=== PATIENT | female | born 1940 | race Caucasian/White ===

== ENCOUNTER 2024-12-30 13:50 | Emergency (ER) | payer MEDICARE, OTHER, SELFPAY ==
--- OUTSIDE RECORDS SUMMARY | 2024-12-30 13:52 | XMS_ITS | Clinical Summary ---
Author Organization [facility] Address [address] [place] [address] Care Team Providers Care Tire Mounter Name Role Phone Johanna Velasco MD Primary Care Provider Allergies Active Allergy Reactions Criticality Noted Date Comments Procaine Shortness Of Breath Medications MULTIVITAMIN ORAL once daily 0 A ctive calcium carbonate (CALTRATE) 600 mg calcium (1,500 mg) tablet Take 1 tablet by mouth once daily with a meal. 180 tablet 3 9 Active Cholecalciferol, Vitamin D3, (VITAMIN D-3) 400 unit capsule Take by mouth once daily. 0 9 Active ascorbic acid, vitamin C, (Vitamin C) 1,000 mg tablet Take 1,000 mg by mouth once daily. Active aspirin chewable 81 mg chewable tabletIndications :NSTEMI (non-ST elevated myocardial infarction) (HC),Coronary artery disease, unspecified vessel or lesion type, unspecified whether angina present, unspecified whether [place] or transplanted heart Chew 1 Tablet (81 mg) by mouth once daily with a meal. 0 1 Active nitroglycerin (NITROSTAT) 0.4 mg sublingual tabletIndications :NSTEMI (non-ST elevated myocardial infarction) (HC),Coronary artery disease, unspecified vessel or lesion type, unspecified whether angina present, unspecified whether [place] or transplanted heart Place 1 Tablet (0.4 mg) under the tongue every 5 minutes if needed. 25 Tablet 2 03/12/2021 6:12 PM CDT 1 Active rosuvastatin (CRESTOR) 20 mg tabletIndications :Coronary artery disease, unspecified vessel or lesion type, unspecified whether angina present, unspecified whether [place] or transplanted heart Take 1 Tablet (20 mg) by mouth at bedtime. 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 Chest pain 03/12/2021 Elevated troponin 03/12/2021 NSTEMI (non-ST elevated myocardial infarction) 0 03/12/2021 Osteoporosis 03/17/2013 Hyperlipidemia 03/17/2013 Immunizations Immunization Administration Dates Next Due Td (Age >=7 Years) 03/31/2000 Tdap 08/29/2009 Family History Medical History Relation Name Comments Thyroid Disease Daughter hypothyroidi sm Heart Disease Father [place] age 52, fat al Hyperlipidemia Father Cancer-breast Maternal Aunt 1 Thyroid Disease Maternal Aunt 2 hypothyro idism Diabetes Mother Other Mother mental illness- bipolar/osteoarthritis Thyroid Disease Mother hypothyroidi sm Relation Name Status Comments Daughter Father Maternal Aunt 1 Maternal Aunt 2 Mother Social History Tobacco Use Types Packs/Day Years Used Date Smoking Tobacco: Never Smokeless Tobacco: Never Tobacco Cessation:Counseling Given: Yes Alcohol Use Standard Drinks/Week Comments Yes 0 (1 standard drink = 0.6 oz pur e alcohol) very little PHQ-2 Answer Date Recorded PHQ-2 TOTAL SCORE 0 04/08/2022 Social Connections Answer Date Recorded Frequency of Communication with Friends and Fami ly Not on file 04/21/2023 Financial Resource Strain Answer Date R ecorded Difficulty of Paying Living Expenses 3 04/08/2022 Difficulty of Paying Living Expenses Not on file 04/08/2022 Food Insecurity Answer Date Recorded Worried About Running Out of Food in the Last Ye ar 1 04/08/2022 Transportation Needs Answer Date Record ed Lack of Transportation (Medical) 1 04/08/2022 Housing Stability Answer Date Recorded Unable to Pay for Housing in the Last Year 1 04/08/2022 Comments No Sex and Gender Information Value Date Recorded Sex Assigned at Not on file Legal Sex Female 6:19 AM HEARING THERAPIST Gender Identity Not on file Sexual Orientation Not on file Obstetrics History Para Term AB IAB SAB Ectopic Multiple Livin g Live Births 3 3 Date Outcome GA Total Labor Labor/2nd/3rd Weight Sex Type Anes PTL Kate A1 A5 Name Clin Last Filed Vital Signs Vital Sign Reading Time Taken Comments Blood Pressure 123/70 07/08/2022 9:27 AM HEARING THERAPIST Pulse 68 07/08/2022 9:27 AM HEARING THERAPIST Temperature 36.5 C (97.7 F) 03/21/2021 1:35 PM CDT Respiratory Rate 16 03/13/2021 6:18 AM CDT Oxygen Saturation 98% 07/08/2022 9:27 AM HEARING THERAPIST Inhaled Oxygen Concentration - - Weight 51.7 kg (114 lb) 07/08/2022 9:27 AM HEARING THERAPIST Height 162.6 cm (5' 4) 04/08/2022 9:06 AM CDT Body Mass Index 19.57 04/08/2022 9:06 AM CDT Plan of Treatment Health Maintenance Due Date Last Done Comments Pneumococcal series for age 50+ (1 of 2 - PCV) 01/28/1959 Zoster (shingles) series for age 50+ (1 of 2) 01/28/1990 RSV vaccine for adults or (1 - 1-dose 75+ series) 01/28/2015 Tetanus booster 08/29/2019 08/29/2009, 03/31/2000 BMI (ht and wt on same day) for age 18+ 04/08/2023 04/08/2022, 03/21/2021, 03/03/2019, Additional history exists Depression screening for age 12+ 04/08/2023 04/08/2022, 07/21/2021, 04/01/2021, Additional history exists Medicare Wellness for age 65+ 04/09/2023, 10/16/2016, 03/18/2012, Additional history exists COVID-19 vaccine series ( - season) 2024 Influenza Vaccine (Season Ended) 2025 Tdap Completed 08/29/2009 DEXA/DXA scan for age 65+ Completed 04/21/2012, 03/2010 Procedures Procedure Name Priority Date/Time Associated Diagnosis Comments XR DXA BONE DENSITY 2 SITES AXIAL Routine 04/21/2012 2:39 PM CDT Osteoporosis, unspecified from Last 3 Months or Most Recently Relevant to Health Maintenance Results * XR DEXA BONE DENSITY 2 SITES [63991.1] (04/21/2012 2:39 PM CDT) Anatomical Region Laterality Modality Spine, HIPS, HIPL, HIPR Other Narrative 04/30/2012 1:34 PM CDT Please see scanned document for results of this study. Procedure Note Wendi Hidalgo PA - 04/30/2012 Please see scanned document for results of this study. Johanna Velasco MD DEXA Final R esult from Last 3 Months or Most Recently Relevant to Health Maintenance Insurance MEDICARE PART B HB ONLY MEDICA PRIME SOLUTION HB MEDICARE PART A HB ONLY MEDICA PRIME SOLUTIONS MR PB ONLY Advance Directives * DNR (Latest Code Status on File) Date Activated Date Inactivated Comments 03/12/2021 9:23 AM 03/13/2021 2:05 PM Question Answer Comments Code Status Discussion: Discussed * Full Code Date Activated Date Inactivated Comments 03/12/2021 8:08 AM 03/12/2021 9:23 AM Question Answer Comments Code Status Discussion: Not Discussed Care Teams Tire Mounter Relationship Specialty Start Date End Date Johanna Velasco MD PCP - General 08/30/09
[2024-12-30 14:11] VITALS: BP 186/81; PULSE 64; RESP 18; TEMP 36.4; O2SAT 97; BMI 19.7
--- NOTE | 2024-12-30 14:29 | ED.GENADULT ---
HPI - General Adult General Chief complaint: Dizziness/Vertigo Stated complaint: Vertigo/ Fatigue Time Seen by Provider: 12/30/24 14:07 History of Present Illness HPI narrative: Patient states she has been working hard on her house and yd. She had episode of vertigo yesterday which is completely resolved. She is comes in today as she has been increasingly fatigued. She feels like she sleeping well but just can not get enough rest. She has no dysuria no nausea no vomiting no fevers no chills no chest pain no shortness of breath no palpitations. Again her vertigo has resolved. He has had no recent injuries. Patient otherwise is in her usual state of health and takes no home medications. Related Data Home Medications ?Medication ?Instructions ?Recorded ?Confirmed No Known Home Medications 12/30/24 12/30/24 Allergies Allergy/AdvReac Type Severity Reaction Status Date / Time No Known Drug Allergies Allergy Verified 12/30/24 14:20 Review of Systems Status of ROS: Reports: 10 or more systems reviewed and unremarkable except as noted in History and below Exam Narrative: Exam Narrative: EXAM GENERAL: Patient appears comfortable and well. EYES: No scleral icterus. LYMPH: No supraclavicular or cervical lymphadenopathy. SKIN: Visible skin seen during exam normal or with benign process only. EXT: No dependent lower extremity pedal edema. HEART: Regular rate and rhythm with no murmurs, rubs, or gallops. LUNGS: Clear to auscultation bilaterally with no crackles or wheezes. ABD: Soft, non tender, non distended. PSYCH: Good eye contact, speech is not pressured. Neurologic cranial nerves 2-12 grossly intact no focal defects. Const: Vital Signs, click to edit/add: Vital Signs - 24 hr 12/30/24 14:11 Temperature 97.6 F Pulse Rate [Pulse Oximeter] 64 Respiratory Rate 18 Blood Pressure [Ri ght Upper Arm] 186/81 H Pulse Oximetry 97 Oxygen Delivery Me thod Room Air Course Course ED Course: Patient seen examined. CBC basic metabolic TSH panel UA EKG pending. Vital Signs Vital signs: Initial Vital Signs Temperature 97.6 F 12/30/24 14:11 Temperature Source Temporal Artery Scan 12/30/24 14:11 Pulse Rate 64 12/30/24 14:11 Respiratory Rate 18 12/30/24 14:11 Blood Pressure 186/81 H 12/30/24 14:11 Blood Pressure Mean 116 H 12/30/24 14:11 Blood Pressure Position Sitting 12/30/24 14:11 Pulse Oximetry 97 12/30/24 14:11 Oxygen Delivery Method Room Air 12/30/24 14:11 Vital Signs Temperature 97.6 F 12/30/24 14:11 Pulse Rate 64 12/30/24 14:11 Respiratory Rate 18 12/30/24 14:11 Blood Pressure 186/81 H 12/30/24 14:11 Pulse Oximetry 97 12/30/24 14:11 Oxygen Delivery Method Room Air 12/30/24 14:11 Temperature 97.6 F 12/30/24 14:11 Pulse Rate 64 12/30/24 14:11 Respiratory Rate 18 12/30/24 14:11 Blood Pressure 186/81 H 12/30/24 14:11 Pulse Oximetry 97 12/30/24 14:11 Oxygen Delivery Method Room Air 12/30/24 14:11 Medical Decision Making MDM Narrative Medical decision making narrative: Patient is a 84-year-old woman who lives independently who presents with fatigue. She has normal exam and normal vital signs with the exception of elevated blood pressure. Her CBC electrolytes as well as UA are unremarkable. UA is unremarkable as well. Did do an EKG which showed normal sinus rhythm. Does have some voltage criteria but no signs of congestive heart failure. Her blood pressure is elevated I will recommend follow-up with primary care. I do not believe there is any other significant pathology at work and I did recommend close outpatient follow-up. Lab Data Labs: Lab Results 12/30/24 12/30/24 Range/Units 14:30 14:40 WBC 5.40 (4.50-11.00) K/uL RBC 4.79 (4.00-5.20) m/uL Hgb 13.6 (12.0-16.0) gm/dL Hct 42.7 (33.0-51.0) % MCV 89 (80-100) fL MCH 28 (26-34) pg MCHC 32 (32-36) gm/dL RDW Coeff of Diane 14.0 (11.5-15.5) % Plt Count 244 (140-440) K/uL Neut % (Auto) 51.0 (42.0-72.0) % Lymph % (Auto) 35.7 (20-44) % Moore % (Auto) 10.7 (0.0-11.0) % Eos % (Auto) 1.5 (0.0-7.0) % Baso % (Auto) 0.4 (0.0-3.0) % Neut # (Auto) 2.75 (1.7-7.0) K/uL Lymph # (Auto) 1.93 (0.90-2.90) K/uL Moore # (Auto) 0.60 (0.00-0.90) K/UL Eos # (Auto) 0.08 (0.00-0.50) K/uL Baso # (Auto) 0.02 (0.00-0.30) K/uL Abs Immat Gran (auto) 0.04 (0.00-0.30) K/uL Imm/Tot Granulo (auto) 0.7 % Sodium 139 (135-149) mmol/L Potassium 4.8 (3.6-5.1) mmol/L Chloride 104 (96-114) mmol/L Carbon Dioxide 26 (20-32) mmol/L Anion Gap 9 (7-15) mEq/L BUN 26 (7-30) mg/dL Creatinine 1.2 (0.5-1.5) mg/dL Estimated Creat Clear 28.74 Estimated GFR 45 ml/min Glucose 95 (60-115) mg/dL Calcium 10.1 (8.4-10.6) mg/dL Urine Color Yellow (Yellow) Urine Appearance Clear (Clear) Urine pH 6.0 (5.0-8.5) Ur Specific [place] 1.025 (1.000-1.030) Urine Protein Negative (Negative) Urine Glucose (UA) Negative (Negative) Urine Ketones Negative (Negative) Urine Blood Negative (Negative) Urine Nitrite Negative (Negative) Urine Bilirubin Negative (Negative) Urine Urobilinogen 0.2 (0.2-1.0) Ur Leukocyte Esterase Negative (Negative) Discharge Plan Discharge Clinical Impression: Fatigue Patient Disposition: Home, Self-Care Condition: Stable Instructions: Fatigue (ED) Additional Instructions: Continue current cares Follow-up with your doctor to address elevated blood pressure and current symptoms. Activity Level: No Restrictions Discharge Diet: Regular Prescriptions: No Action No Known Home Medications Follow Up/Referrals: Johanna Velasco MD [Primary Care Provider] - Stand Alone Forms: [employer] Info Instructions
--- OUTSIDE RECORDS SUMMARY | 2024-12-30 14:45 | XMS_ITS | Clinical Summary ---
Author Organization [facility] Address [address] [place] [id number] Care Team Providers Care Nnp Name Role Phone Johanna Velasco MD Primary [...] type, unspecified whether angina present, unspecified whether [place] or transplanted heart Chew 1 Tablet (81 mg) by mouth once daily with a meal. 0 1 Active nitroglycerin (NITROSTAT) 0.4 mg sublingual tabletIndications :NSTEMI (non-ST elevated myocardial infarction) (HC),Coronary artery disease, unspecified vessel or lesion type, unspecified whether angina present, unspecified whether [place] or transplanted heart Place 1 Tablet (0.4 mg) under the tongue every 5 minutes if needed. 25 Tablet 2 03/12/2021 6:12 PM CDT 1 Active rosuvastatin (CRESTOR) 20 mg tabletIndications :Coronary artery disease, unspecified vessel or lesion type, unspecified whether angina present, unspecified whether [place] or transplanted heart Take 1 Tablet (20 [...] Disease Daughter hypothyroidi sm Heart Disease Father [place] age 52, fat al Hyperlipidemia Father Cancer-breast [...] on file Legal Sex Female 6:19 AM MANAGER SITE Gender Identity Not on file Sexual Orientation Not on file Obstetrics History Para Term AB IAB SAB Ectopic Multiple Livin g Live Births 3 3 Date Outcome GA Total Labor Labor/2nd/3rd Weight Sex Type Anes PTL Kate A1 A5 Name Clin Last Filed Vital Signs Vital Sign Reading Time Taken Comments Blood Pressure 123/70 07/08/2022 9:27 AM MANAGER SITE Pulse 68 07/08/2022 9:27 AM MANAGER SITE Temperature 36.5 C (97.7 F) 03/21/2021 1:35 PM CDT Respiratory Rate 16 03/13/2021 6:18 AM CDT Oxygen Saturation 98% 07/08/2022 9:27 AM MANAGER SITE Inhaled Oxygen Concentration - - Weight 51.7 kg (114 lb) 07/08/2022 9:27 AM MANAGER SITE Height 162.6 cm (5' 4) 04/08/2022 9:06 [...] * XR DEXA BONE DENSITY 2 SITES [75916.1] (04/21/2012 2:39 PM CDT) Anatomical Region Laterality [...] Code Status Discussion: Not Discussed Care Teams Nnp Relationship Specialty Start Date End Date Johanna Velasco MD PCP - General 08/30/09
[2024-12-30 14:46] LABS: Basophils Absolute Auto 0.02 K/uL (0.00-0.30); Basophils Percent Auto 0.4 % (0.0-3.0); Eosinophils Absolute Auto 0.08 K/uL (0.00-0.50); Eosinophils Percent Auto 1.5 % (0.0-7.0); Hematocrit 42.7 % (33.0-51.0); Hemoglobin* 13.6 gm/dL (12.0-16.0); Immature Granulocytes Abs Auto 0.04 K/uL (0.00-0.30); Immature Granulocytes Pct Auto 0.7 %; Lymphocytes Absolute Auto 1.93 K/uL (0.90-2.90); Lymphocytes Percent Auto 35.7 % (20-44); Mean Corpuscular HGB Conc 32 gm/dL (32-36); Mean Corpuscular Hemoglobin 28 pg (26-34); Mean Corpuscular Volume 89 fL (80-100); Monocytes Percent Auto 10.7 % (0.0-11.0); Neutrophils Absolute Auto 2.75 K/uL (1.7-7.0); Platelet Count* 244 K/uL (140-440); Red Blood Count 4.79 m/uL (4.00-5.20)
[2024-12-30 14:49] LABS: Appearance Urine Clear (Clear); Bilirubin Urine Negative (Negative); Blood Urine Negative (Negative); Color Urine Yellow (Yellow); Glucose Urine Negative (Negative); Ketones Urine Negative (Negative); Leukocyte Esterase Urine Negative (Negative); Nitrite Urine Negative (Negative); Protein Urine Negative (Negative); Specific Gravity Urine 1.025 (1.000-1.030); Urobilinogen Urine 0.2 (0.2-1.0)
[2024-12-30 14:56] LABS: Slide Review Reflex No
[2024-12-30 15:00] LABS: Chloride* 104 mmol/L (96-114)
[2024-12-30 15:01] LABS: Potassium* 4.8 mmol/L (3.6-5.1); Sodium* 139 mmol/L (135-149)
[2024-12-30 15:04] LABS: Anion Gap 9 mEq/L (7-15); Blood Urea Nitrogen* 26 mg/dL (7-30); Calcium* 10.1 mg/dL (8.4-10.6); Carbon Dioxide* 26 mmol/L (20-32); Creatinine* 1.2 mg/dL (0.5-1.5); Est. Creatinine Clearance* 28.74; Estimated Glomerular Filt Rate 45 ml/min; Glucose* 95 mg/dL (60-115)
== END 2024-12-30 15:27 | disposition home or self-care (01) ==
PROVIDERS: Emergency Provider Internal Medicine; PCP Family Medicine
DX: R42 Dizziness and giddiness (principal); R53.83 Other fatigue
CPT/HCPCS: 36415; 80048; 81003; 84443; 85025; 93005; 99283; 99284

== ENCOUNTER 2025-02-11 20:36 | Emergency (ER) | payer MEDICARE, OTHER, SELFPAY ==
--- OUTSIDE RECORDS SUMMARY | 2025-02-11 20:38 | XMS_ITS | Clinical Summary ---
Author Organization [facility] Address [address] [place] [address] Care Team Providers Care Regional Vice President Surgical Sales Name Role Phone Johanna Velasco MD Primary Care Provider Allergies Active Allergy Reactions Criticality Noted Date Comments Procaine Shortness Of Breath Medications MULTIVITAMIN ORAL once daily 0 A ctive Cholecalciferol, Vitamin D3, (VITAMIN D-3) 400 unit capsule Take by mouth once daily. 0 9 Active ascorbic acid, vitamin C, (Vitamin C) 1,000 mg tablet Take 1,000 mg by mouth once daily. Active aspirin chewable 81 mg chewable tabletIndications :NSTEMI (non-ST elevated myocardial infarction) (HC),Coronary artery disease, unspecified vessel or lesion type, unspecified whether angina present, unspecified whether [place] or transplanted heart Chew 1 Tablet (81 mg) by mouth once daily with a meal. 0 1 Active nitroglycerin 0.4 mg sublingual tabletIndications :NSTEMI (non-ST elevated myocardial infarction) (HC),Coronary artery disease, unspecified vessel or lesion type, unspecified whether angina present, unspecified whether [place] or transplanted heart Place 1 Tablet (0.4 mg) under the tongue every 5 minutes if needed for Chest Pain. 25 Tablet 2 5 Active lisinopriL 10 mg tabletIndications :HTN (hypertension) Take 1 Tablet (10 mg) by mouth once daily. 90 Tablet 3 5 Active calcium carbonate (CALTRATE) 600 mg calcium (1,500 mg) tablet Take 1 tablet by mouth once daily with a meal. 180 tablet 3 9 01/19/20 25 Discontinu ed(*Patien t states no longer taking) nitroglycerin (NITROSTAT) 0.4 mg sublingual tabletIndications :NSTEMI (non-ST elevated myocardial infarction) (HC),Coronary artery disease, unspecified vessel or lesion type, unspecified whether angina present, unspecified whether [place] or transplanted heart Place 1 Tablet (0.4 mg) under the tongue every 5 minutes if needed. 25 Tablet 2 03/12/2021 6:12 PM CDT 1 01/19/20 25 Discontinu ed(Reorder (E-cancel not sent)) rosuvastatin (CRESTOR) 20 mg tabletIndications :Coronary artery disease, unspecified vessel or lesion type, unspecified whether angina present, unspecified whether [place] or transplanted heart Take 1 Tablet (20 mg) by mouth at bedtime. 90 Tablet 3 2 01/19/20 25 Discontinu ed(*Patien t states no longer taking) Active Problems Problem Noted Date Diagnosed Date Subclinical hypothyroidism 04/09/2022 Chest pain 03/12/2021 Elevated troponin 03/12/2021 NSTEMI (non-ST elevated myocardial infarction) 0 03/12/2021 Osteoporosis 03/17/2013 Hyperlipidemia 03/17/2013 Encounters Date Type Department Care Team Description 02/02/2025 1:00 PM CDT Nurse/Clinic Staff Only [facility] [address] [place] [address] Blood Pressure 02/02/2025 Telephone [facility] [address] [place] [address] Johanna Velasco MD High Blood Pressure 02/02/2025 Travel 01/18/2025 10:05 AM CDT Office Visit [facility] [address] [place] [address] Johanna Velasco MD Medicare ANNUAL (subsequent) Visit (84 yr/Wants an A1c, is aware Medicare does not cover) 01/18/2025 Travel 01/03/2025 11:45 AM CDT Office Visit [facility] [address] [place] [address] Johanna Velasco MD ER Follow up ([facility] 12/30/24. Vertigo, after became very fatigued. Will have episodes where her equal liberum is off. Her BP was really elevated and that is not normal for her as her BP generally is on the lower end of normal. Has not been doing what she was told to do after Cardiac rehab and not taking any of her medications) 01/03/2025 Travel 01/02/2025 2:10 PM CDT Nurse/Clinic Staff Only [facility] [address] [place] [address] Blood Pressure 01/02/2025 Travel 01/02/2025 Nurse Triage [facility] [address] [place] [address] Johanna Velasco MD Fatigue from Last 3 Months Immunizations Immunization Administration Dates Next Due Td (Age >=7 Years) 03/31/2000 Tdap 08/29/2009 Family History Medical History Relation Name Comments Thyroid Disease Daughter hypothyroidi sm Heart Disease Father [place] age 52, fat al Hyperlipidemia Father Cancer-breast [...] PHQ-2 Answer Date Recorded PHQ-2 TOTAL SCORE 1 01/18/2025 Social Connections Answer Date Recorded Do you often feel lonely or isolated from those around you? 0 01/03/2025 Financial Resource Strain Answer Date R ecorded Difficulty of Paying Living Expenses 3 01/03/2025 Difficulty of Paying Living Expenses Not on file 01/03/2025 Food Insecurity Answer Date Recorded Do you worry your food will run out before you are able to buy more? 1 01/03/2025 Transportation Needs Answer Date Record ed Does lack of transportation keep you from medica l appointments? 1 01/03/2025 Does lack of transportation keep you from work, meetings or getting things that you need? 1 01/03/2025 Housing Stability Answer Date Recorded What is your housing situation today? 1 01/03/2025 Utilities Answer Date Recorded Do you have trouble paying f or utilities (for example, heat, electricity, water, phone)? 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 Gender Identity Not on file Sexual Orientation Not on file Obstetrics History Para Term AB IAB SAB Ectopic Multiple Livin g Live Births 3 3 Date Outcome GA Total Labor Labor/2nd/3rd Weight Sex Type Anes PTL Kate A1 A5 Name Clin Last Filed Vital Signs Vital Sign Reading Time Taken Comments Blood Pressure 151/69 02/02/2025 1:41 PM CDT BP tower in RN room Pulse 59 02/02/2025 1:41 PM CDT Temperature 36.5 C (97.7 F) 03/21/2021 1:35 PM CDT Respiratory Rate 16 03/13/2021 6:18 AM CDT Oxygen Saturation 99% 02/02/2025 1:4 1 PM CDT Inhaled Oxygen Concentration - - Weight 53.2 kg (117 lb 3.2 oz) 01/18/2025 10:15 AM CDT Height 162.6 cm (5' 4) 01/18/2025 10:1 5 AM CDT Body Mass Index 20.12 01/18/2025 10:15 AM CDT Plan of Treatment Health Maintenance Due Date Last Done Comments Pneumococcal series for age 50+ (1 of 2 - PCV) 01/28/1959 Zoster (shingles) series for age 50+ (1 of 2) 01/28/1990 RSV vaccine for adults or (1 - 1-dose 75+ series) 01/28/2015 Tetanus booster 08/29/2019 08/29/2009, 03/31/2000 COVID-19 vaccine series ( - 2023- season) 2024 Influenza Vaccine (Season Ended) 2025 BMI (ht and wt on same day) for age 18+ 01/18/2026 01/18/2025, 01/03/2025, 04/08/2022, Additional history exists Depression screening for age 12+ 01/18/2026 01/18/2025, 04/08/2022, 07/21/2021, Additional history exists Medicare Wellness for age 65+ 01/19/2026 01/18/2025, 04/08/2022, 10/16/2016, Additional history exists Tdap Completed 08/29/2009 DEXA/DXA scan for age 65+ Completed 04/21/2012, 03/2010 Hepatitis B series for 19+ Aged Out N o longer eligible based on patient's age to complete this topic Procedures Procedure Name Priority Date/Time Associated Diagnosis Comments TSH WITH REFLEX Routine 01/03/2025 12:23 PM CDT Fatigue, unspecified type LIPID PANEL W REFLEX MEASURED LDL Routine 01/03/2025 12:23 PM CDT Hyperlipidemia, unspecified hyperlipidemia type XR DXA BONE DENSITY 2 SITES AXIAL Routine 04/21/2012 2:39 PM CDT Osteoporosis, unspecified from Last 3 Months or Most Recently Relevant to Health Maintenance Results * TSH WITH REFLEX (01/03/2025 12:23 PM CDT) TSH W/REFLEX TO FT4 4.24 0.40 - 4.50 mIU/L [facility] Blood BLOOD SPECIMEN / Unknown 01/03/2025 12:23 PM CDT 01/03/2025 12:25 PM CDT Narrative [facility] - 01/04/2025 7:01 AM CDT FASTING:YES FASTING: YES Johanna Velasco MD CHEMISTRY Final R esult [facility] [address] [place] [address], [facility] [address] [place] [address] * (ABNORMAL) LIPID PANEL W REFLEX MEASURED LDL (01/03/2025 12:23 PM CDT) CHOLESTEROL, TOTAL 256(H) <200 mg/dL [facility] HDL CHOLESTEROL 72 > OR = 50 mg/dL [facility] TRIGLYCERIDES 81 <150 mg/dL [facility] LDL-CHOLESTEROL 166(H) mg/dL (calc) [facility] Comment: Reference range: <100 Desirable range <100 mg/dL for primary prevention; <70 mg/dL for patients with CHD or diabetic patients with > or = 2 CHD risk factors. LDL-C is now calculated using the Mesfin-Panda calculation, which is a validated novel method providing better accuracy than the Friedewald equation in the estimation of LDL-C. Mesfin JAMES et al. OLMAN. 2013;310(19): 6740-8965 (http://education.Waveborn/faq/ZJF307) CHOL/HDLC RATIO 3.6 <5.0 (calc) [facility] NON HDL CHOLESTEROL 184(H) <130 mg/dL (calc) [facility] Comment: For patients with diabetes plus 1 major ASCVD risk factor, treating to a non-HDL-C goal of <100 mg/dL (LDL-C of <70 mg/dL) is considered a therapeutic option. Blood BLOOD SPECIMEN / Unknown 01/03/2025 12:23 PM CDT 01/03/2025 12:25 PM CDT Narrative [facility] - 01/04/2025 5:07 AM CDT FASTING:YES FASTING: YES Johanna Velasco MD CHEMISTRY Final R esult [facility] [address] [place] [address], [facility] [address] [place] [address] * XR DEXA BONE DENSITY 2 SITES [25267.1] (04/21/2012 2:39 PM CDT) Anatomical Region Laterality [...] SOLUTION HB MEDICARE PART A HB ONLY [email or web address] MR PB ONLY Advance Directives * DNR (Latest Code Status on File) Date Activated Date Inactivated Comments 03/12/2021 9:23 AM 03/13/2021 2:05 PM Question Answer Comments Code Status Discussion: Discussed * Full Code Date Activated Date Inactivated Comments 03/12/2021 8:08 AM 03/12/2021 9:23 AM Question Answer Comments Code Status Discussion: Not Discussed Care Teams Regional Vice President Surgical Sales Relationship Specialty Start Date End Date Johanna Velasco MD PCP - General 08/30/09
[2025-02-11 21:00] VITALS: BP 135/70; PULSE 64; RESP 16; TEMP 37.4; O2SAT 97; BMI 20.4
[2025-02-11 21:08] LABS: Appearance Urine Cloudy (Clear); Bilirubin Urine Negative (Negative); Blood Urine 3+ (Negative); Color Urine Yellow (Yellow); Glucose Urine Negative (Negative); Ketones Urine Negative (Negative); Leukocyte Esterase Urine 1+ (Negative); Nitrite Urine Negative (Negative); Protein Urine Trace (Negative); Specific Gravity Urine 1.025 (1.000-1.030); Urobilinogen Urine 0.2 (0.2-1.0); pH Urine 5.5 (5.0-8.5)
[2025-02-11 21:23] LABS: Bacteria Urine Few; RBC Urine 25-50 (0-2); Squamous Epithelial Cell Urine Few (None-Few)
--- NOTE | 2025-02-11 21:43 | ED.FEMALEGU ---
HPI - Female Genitourinary General Date Seen: 02/11/25 Chief complaint: Urogenital Problems, Female Stated complaint: UTI Time Seen by Provider: 02/11/25 21:02 Source: patient Mode of arrival: ambulatory Limitations: no limitations History of Present Illness HPI Narrative: Patient is a 85-year-old female presenting to the emergency department for dysuria, polyuria that started this evening. States she gets a UTI every year to this feels just like her previous UTIs. Unsure what medication she usually gets. She thinks it is a sulfa drug. Denies chest pain, shortness of breath, abdominal pain, nausea, urinary retention, headache, vision changes, lightheadedness, dizziness, weakness, numbness. No other concerns noted at this time. Has not had any fevers or chills Related Data Home Medications ?Medication ?Instructions ?Recorded ?Confirmed lisinopril 10 mg tablet 10 mg PO DAILY 02/11/25 02/11/25 Allergies Allergy/AdvReac Type Severity Reaction Status Date / Time Penicillins AdvReac Verified 02/11/25 21:02 Review of Systems Status of ROS: Reports: 10 or more systems reviewed and unremarkable except as noted in History and [facility] Smoking Status: Never smoker How often do you have a drink containing alcohol: never AUDIT-C Alcohol total score: 0 Non-prescribed substance use: denies use Exam Narrative: Exam Narrative: Const: Well-nourished, Well-developed, in no distress Eyes: PERRL, no conjunctival injection, and symmetrical lids HENT: Atraumatic external nose and ears. Moist mucous membranes. Neck: Symmetric, trachea midline, No thyromegaly. CVS: RRR, No murmurs or gallops. Peripheral pulses 2+ and equal in all extremities RESP: Unlabored respiratory effort. Clear to auscultation bilaterally. GI: Nontender/Nondistended, No rebound or guarding. MSK:Extremities w/o deformity, Normal Active ROM Skin: Warm, Dry. No rashes or lesions. Neuro: Normal Muscle tone, No focal neurological deficits. Psych: Awake, Alert, & Oriented x3. Appropriate mood and affect. Const: Vital Signs, click to edit/add: Vital Signs - 24 hr 02/11/25 21:00 Temperature 99.4 F Pulse Rate [Pulse Oximeter] 64 Respiratory Rate 16 Blood Pressure [Ri ght Upper Arm] 135/70 Pulse Oximetry 97 Oxygen Delivery Me thod Room Air Course Vital Signs Vital signs: Initial Vital Signs Temperature 99.4 F 02/11/25 21:00 Temperature Source Temporal Artery Scan 02/11/25 21:00 Pulse Rate 64 02/11/25 21:00 Respiratory Rate 16 02/11/25 21:00 Blood Pressure 135/70 02/11/25 21:00 Blood Pressure Mean 91 02/11/25 21:00 Blood Pressure Position Sitting 02/11/25 21:00 Pulse Oximetry 97 02/11/25 21:00 Oxygen Delivery Method Room Air 02/11/25 21:00 Vital Signs Temperature 99.4 F 02/11/25 21:00 Pulse Rate 64 02/11/25 21:00 Respiratory Rate 16 02/11/25 21:00 Blood Pressure 135/70 02/11/25 21:00 Pulse Oximetry 97 02/11/25 21:00 Oxygen Delivery Method Room Air 02/11/25 21:00 Temperature 99.4 F 02/11/25 21:00 Pulse Rate 64 02/11/25 21:00 Respiratory Rate 16 02/11/25 21:00 Blood Pressure 135/70 02/11/25 21:00 Pulse Oximetry 97 02/11/25 21:00 Oxygen Delivery Method Room Air 02/11/25 21:00 MDM - Female Genitourinary MDM Narrative Medical decision making narrative: Patient is an 85-year-old female presenting to the emergency department for a UTI. Urinalysis returned showing signs of a UTI. I will start her on antibiotics. I do not believe further workup is necessary as she is not having any symptoms and states this is just like her previous episodes. Also unable to find out what previous antibiotic she is you is. I did consider take Keflex but she has previously had allergy to penicillins like cause her severe respiratory distress when she was in her 20s. Due to that I will try Macrobid instead. Prescribed via [facility]. Lab Data Labs: Lab Results 02/11/25 Range/Units 20:50 Urine Color Yellow (Yellow) Urine Appearance Cloudy A (Clear) Urine pH 5.5 (5.0-8.5) Ur Specific [place] 1.025 (1.000-1.030) Urine Protein Trace A (Negative) Urine Glucose (UA) Negative (Negative) Urine Ketones Negative (Negative) Urine Blood 3+ A (Negative) Urine Nitrite Negative (Negative) Urine Bilirubin Negative (Negative) Urine Urobilinogen 0.2 (0.2-1.0) Ur Leukocyte Esterase 1+ A (Negative) Urine RBC 25-50 A (0-2) Urine WBC 10-25 A (0-5) Ur Squamous Epith Cells Few (None-Few) Urine Bacteria Few A (None) Discharge Plan Discharge Clinical Impression: Urinary tract infection Qualifiers: Urinary tract infection type: site unspecified Hematuria presence: without hematuria Qualified Code(s): N39.0 - Urinary tract infection, site not specified Patient Disposition: Home, Self-Care Condition: Stable Instructions: Urinary Tract Infection in Older Adults (ED) Additional Instructions: Take the antibiotics as prescribed. You can pick it up at [facility]. If you starts developing any shortness of breath but taking this medication stop it immediately and return for re-evaluation. Prescriptions: No Action lisinopril 10 mg tablet 10 mg PO DAILY Follow Up/Referrals: Johanna Velasco MD [Primary Care Provider, Family Practice] Stand Alone Forms: [employer] Info Instructions
== END 2025-02-11 22:00 | disposition home or self-care (01) ==
PROVIDERS: Emergency Medicine; Emergency Provider Student in an Organized Health Care Education/Training Program; PCP Family Medicine
DX: N39.0 Urinary tract infection, site not specified (principal)
CPT/HCPCS: 81001; 87086; 99283

== ENCOUNTER 2025-04-26 10:40 | Inpatient (IN) | payer MEDICARE, OTHER, SELFPAY ==
[2025-04-26] VITALS (8 sets, daily range): BP systolic 132–216; BP diastolic 75–108; PULSE 69–86; RESP 16–20; TEMP 36.4–37.1; O2SAT 99–100; BMI 17.4; BMI 17.6; BMI 17.7
--- OUTSIDE RECORDS SUMMARY | 2025-04-26 10:44 | XMS_ITS | Clinical Summary ---
Author Organization [email or web address] [facility] Address [address] [place] [id number] Care Team Providers Care Java Flex Developer Name Role Phone Johanna Velasco MD Primary [...] type, unspecified whether angina present, unspecified whether modoc or transplanted heart Chew 1 Tablet (81 mg) by mouth once daily with a meal. 0 1 Active nitroglycerin 0.4 mg sublingual tabletIndications :NSTEMI (non-ST elevated myocardial infarction) (HC),Coronary artery disease, unspecified vessel or lesion type, unspecified whether angina present, unspecified whether modoc or transplanted heart Place 1 Tablet (0.4 mg) under the tongue every 5 minutes if needed for Chest Pain. 25 Tablet 2 5 Active lisinopriL 10 mg tabletIndications :HTN (hypertension) Take 1 Tablet (10 mg) by mouth once daily. 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 Not answering her phone. Brother in [facility]) 04/25/2025 10:55 AM CDT Office Visit [facility] [address] [place] [address] Johanna Velasco MD Weight (Has lost a lot of weight, stomach pain and loss of appetite ); Fatigue; Extremity Weakness (Cn't walk, feels very unstable and weak. Has fallen a few time. Legs hurt); Derm Problem; Confusion (Can't remember very well, loss of words) 04/25/2025 Travel 02/02/2025 1:00 PM CDT Nurse/Clinic Staff Only [facility] [address] [facility] [place] [address] Blood Pressure 02/02/2025 Telephone [facility] [address] [place] [address] Johanna Velasco MD High Blood Pressure 02/02/2025 Travel from Last 3 Months Immunizations Immunization Administration Dates Next Due Td (Age >=7 Years) 03/31/2000 Tdap 08/29/2009 Family History Medical History Relation Name Comments Thyroid Disease Daughter hypothyroidi sm Heart Disease Father [place] age 52, fat al Hyperlipidemia Father Cancer-breast [...] on file Legal 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 Gender Identity Not on file Sexual Orientation Not on file Obstetrics History Para Term AB IAB SAB Ectopic Multiple Livin g Live Births 3 3 Date Outcome GA Total Labor Labor/2nd/3rd Weight Sex Type Anes PTL Kate A1 A5 Name Clin Last Filed Vital Signs Vital Sign Reading Time Taken Comments Blood Pressure 199/95 04/25/2025 11:11 AM CDT Pulse 83 04/25/2025 11:11 AM CDT Temperature 36.5 C (97.7 F) 03/21/2021 1:35 PM CDT Respiratory Rate 16 03/13/2021 6:18 AM CDT Oxygen Saturation 98% 04/25/2025 11:11 AM CDT Inhaled Oxygen Concentration - - Weight 44.5 kg (98 lb) 04/25/2025 11:11 AM CDT Height 162.6 cm (5' 4) 01/18/2025 10:15 AM CDT Body Mass Index 16.82 01/18/2025 10:15 AM CDT Plan of Treatment Upcoming Encounters Date Type Department Care Team (Late st Contact Info) Description 04/30/2025 2:15 PM CDT Office Visit [facility] [address] [place] [address] Johanna Velasco MD [address] [place] [address] Health Maintenance Due Date Last Done Comments Pneumococcal series for age 50+ (1 of 2 - PCV) 01/28/1959 Zoster (shingles) series for age 50+ (1 of 2) 01/28/1990 RSV vaccine for adults or (1 - 1-dose 75+ series) 01/28/2015 Tetanus booster 08/29/2019 08/29/2009, 03/31/2000 COVID-19 vaccine series (1 - season) 2025 Influenza Vaccine (#1) 2025 BMI (ht and wt on same day) for age 18+ 01/18/2026 01/18/2025, 01/03/2025, 04/08/2022, Additional history exists Depression screening for age 12+ 01/18/2026 01/18/2025, 04/08/2022, 07/21/2021, Additional history exists Medicare Wellness for age 65+ 01/19/2026 01/18/2025, 04/08/2022, 10/16/2016, Additional history exists DEXA/DXA scan for age 65+ Completed 04/21/2012, 03/2010 Hepatitis B series for 19+ Aged Out N o longer eligible based on patient's age to complete this topic Procedures Procedure Name Priority Date/Time Associated Diagnosis Comments CBC WITH AUTO DIFFERENTIAL Routine 04/25/2025 12:12 PM CDT Weakness Unintentional weight loss Lower abdominal pain COMP METABOLIC PANEL Routine 04/25/2025 12:12 PM CDT Weakness Unintentional weight loss Lower abdominal pain TSH WITH REFLEX Routine 04/25/2025 12:12 PM CDT Weakness Unintentional weight loss Lower abdominal pain Subclinical hypothyroidism CBC WITH AUTO DIFFERENTIAL Routine 04/25/2025 12:12 PM CDT Weakness Unintentional weight loss Lower abdominal pain XR DXA BONE DENSITY 2 SITES AXIAL Routine 04/21/2012 2:39 PM CDT Osteoporosis, unspecified from Last 3 Months or Most Recently Relevant to Health Maintenance Results * (ABNORMAL) CBC WITH AUTO DIFFERENTIAL (04/25/2025 12:12 PM CDT) Pathologist [facility] WHITE BLOOD CELL COUNT 7.5 3.8 - 10.8 Thousand/ uL 04/26/2025 3:17 AM CDT [facility] RED BLOOD CELL COUNT 5.17(H) 3.80 - 5.10 Million/u L 04/26/2025 3:17 AM CDT [facility] HEMOGLOBIN 14.5 11.7 - 15.5 g/dL 04/26/2025 3:17 AM CDT [facility] HEMATOCRIT 44.7 35.0 - 45.0 % 04/26/2025 3:17 AM CDT [facility] MCV 86.5 80.0 - 100.0 fL 04/26/2025 3:17 AM CDT [facility] MCH 28.0 27.0 - 33.0 pg 04/26/2025 3:17 AM CDT [facility] MCHC 32.4 32.0 - 36.0 g/dL 04/26/2025 3:17 AM CDT [facility] Comment: For adults, a slight decrease in the calculated MCHC value (in the range of 30 to 32 g/dL) is most likely not clinically significant; however, it should be interpreted with caution in correlation with other red cell parameters and the patient's clinical condition. RDW 13.4 11.0 - 15.0 % 04/26/2025 3:17 AM CDT [facility] PLATELET COUNT 280 140 - 400 Thousand/ uL 04/26/2025 3:17 AM CDT [facility] MPV 11.9 7.5 - 12.5 fL 04/26/2025 3:17 AM CDT [facility] NEUTROPHILS 74 % 04/26/2025 3:17 AM CDT [facility] LYMPHOCYTES 14.7 % 04/26/2025 3:17 AM CDT [facility] MONOCYTES 10.9 % 04/26/2025 3:17 AM CDT [facility] EOSINOPHILS 0.1 % 04/26/2025 3:17 AM CDT [facility] BASOPHILS 0.3 % 04/26/2025 3:17 AM CDT [facility] ABSOLUTE NEUTROPHILS 5550 1500 - 7800 cells/uL 04/26/2025 3:17 AM CDT [facility] ABSOLUTE LYMPHOCYTES 1103 850 - 3900 cells/uL 04/26/2025 3:17 AM CDT [facility] ABSOLUTE MONOCYTES 818 200 - 950 cells/uL 04/26/2025 3:17 AM CDT [facility] ABSOLUTE EOSINOPHILS 8(L) 15 - 500 cells/uL 04/26/2025 3:17 AM CDT [facility] ABSOLUTE BASOPHILS 23 0 - 200 cells/uL 04/26/2025 3:17 AM CDT [facility] Blood BLOOD SPECIMEN / Unknown [facility] / Unknown 04/25/2025 12:12 PM CDT 04/25/2025 12:13 PM CDT us Johanna Velasco MD HEMATOLOGY Final R esult Performing Organization Address City/[facility]/ZIP Co de Phone Number [facility] [address] [address], [place] [phone] * TSH WITH REFLEX (04/25/2025 12:12 PM CDT) TSH W/REFLEX TO FT4 3.37 0.40 - 4.50 mIU/L 04/26/2025 6:01 AM CDT [facility] Blood BLOOD SPECIMEN / Unknown [facility] / Unknown 04/25/2025 12:12 PM CDT 04/25/2025 12:13 PM CDT us Johanna Velasco MD CHEMISTRY Final R esult Performing Organization Address [facility]/ZIP Co de Phone Number [facility] [address] [address], [place] [phone] * (ABNORMAL) COMP METABOLIC PANEL (04/25/2025 12:12 PM CDT) SODIUM 139 135 - 146 mmol/L 04/26/2025 9:49 AM CDT [facility] POTASSIUM 3.7 3.5 - 5.3 mmol/L 04/26/2025 9:49 AM CDT [facility] CHLORIDE 97(L) 98 - 110 mmol/L 04/26/2025 9:49 AM CDT [facility] CARBON DIOXIDE 32 20 - 32 mmol/L 04/26/2025 9:49 AM CDT [facility] GLUCOSE 122(H) 65 - 99 mg/dL 04/26/2025 9:49 AM CDT [facility] Comment: Fasting reference interval For someone without known diabetes, a glucose value between 100 and 125 mg/dL is consistent with prediabetes and should be confirmed with a follow-up test. CALCIUM >15.0(HH) 8.6 - 10.4 mg/dL 04/26/2025 9:49 AM CDT [facility] Comment:Verified by repeat a nalysis. CREATININE 1.81(H) 0.60 - 0.95 mg/dL 04/26/2025 9:49 AM CDT [facility] BUN/CREATININE RATIO 18 6 - 22 (calc) 04/26/2025 9:49 AM CDT [facility] EGFR 27(L) > OR = 60 mL/min/1. 73m2 04/26/2025 9:49 AM CDT [facility] ALBUMIN 4.6 3.6 - 5.1 g/dL 04/26/2025 9:49 AM CDT [facility] PROTEIN, TOTAL 7.6 6.1 - 8.1 g/dL 04/26/2025 9:49 AM CDT [facility] BILIRUBIN, TOTAL 0.6 0.2 - 1.2 mg/dL 04/26/2025 9:49 AM CDT [facility] ALKALINE PHOSPHATASE 55 37 - 153 U/L 04/26/2025 9:49 AM CDT [facility] ALT 9 6 - 29 U/L 04/26/2025 9:49 AM CDT [facility] AST 24 10 - 35 U/L 04/26/2025 9:49 AM CDT [facility] UREA NITROGEN (BUN) 32(H) 7 - 25 mg/dL 04/26/2025 9:49 AM CDT [facility] GLOBULIN 3.0 1.9 - 3.7 g/dL (calc) 04/26/2025 9:49 AM CDT [facility] ALBUMIN/GLOBULI N RATIO 1.5 1.0 - 2.5 (calc) 04/26/2025 9:49 AM CDT [facility] Blood BLOOD SPECIMEN / Unknown [facility] / Unknown 04/25/2025 12:12 PM CDT 04/25/2025 12:13 PM CDT Johanna Velasco MD CHEMISTRY Final R esult [facility] [address] [place] [address], [place] [phone] * XR DEXA BONE DENSITY 2 SITES [48804.1] (04/21/2012 2:39 PM CDT) Anatomical Region Laterality [...] Code Status Discussion: Not Discussed Care Teams Java Flex Developer Relationship Specialty Start Date End Date Johanna Velasco MD PCP - General 08/30/09
--- NOTE | 2025-04-26 11:15 | ED.GENADULT ---
HPI - General Adult General Time Seen by Provider: 11:15 Date Seen: 04/26/25 Chief complaint: Weakness Stated complaint: Abnormal labs Time Seen by Provider: 04/26/25 11:15 Source: patient and RN notes reviewed Mode of arrival: ambulatory Limitations: no limitations History of Present Illness HPI narrative: And is a very pleasant 85-year-old female with history of constipation confusion and intermittent vertigo with difficulty walking starting approximately 2 months ago with increasing symptoms. She went to her primary physician at [facility] Dr. Velasco and labs were ordered. An was contacted today and to come to the emergency room immediately for an abnormal blood level. We do find out that is elevated calcium that measured greater than 15. Upon further discussion patient notes that she has been having a hard time walking and occasionally talking for at least 2 months. She states she will try to walk and then will fall over. She notes long-time history of constipation even with the use of Metamucil. States that she really has not been eating because she gets a pain in her stomach after eating. This has been going on for approximately a month. She notes a 40 lb weight loss in the past 4 months although her primary documents a 19 lb weight loss in the past few months. Patient herself states that she occasionally has challenges finding words even though she knows what she wants to say P she denies any vomiting fever chills dysuria or hematuria. She denies any belly pain or vertigo today. She states that she has had thyroid problems in the past but is unable to give me any details. She notes history of is MRI with 2 stent placements 4 years ago. Patient denies visual changes. Able to obtain records from [facility]. Note from yesterday April 25 notes patient has concern including weight loss fatigue weakness and confusion. She has also been dealing with nausea after her much meals and her appetite has decreased significantly. Note details challenges with primary care provider and brother. Primary care provider Dr. Velasco called me today and noted that he seemed to be rather argumentative. Primary care has concerns about patient being vulnerable in his care. Related Data Home Medications ?Medication ?Instructions ?Recorded ?Confirmed lisinopril 10 mg tablet 10 mg PO DAILY 02/11/25 02/11/25 Allergies Allergy/AdvReac Type Severity Reaction Status Date / Time procaine (From Novocain) Allergy Severe Verified 04/26/25 11:11 Penicillins AdvReac Verified 02/11/25 21:02 Review of Systems Status of ROS: Reports: 10 or more systems reviewed and unremarkable except as noted in History and below Const: Reports: fatigue; Denies: fever or chills Eyes: Denies: change in vision ENMT: Reports: vertigo; Denies: throat pain, neck pain or nasal congestion Cardio: Denies: chest pain, palpitations, swelling of feet/ankles, lightheadedness or shortness of breath with exertion Resp: Denies: shortness of breath or cough GI: Reports: abdominal pain, nausea and constipation; Denies: vomiting or blood in stool : Denies: painful urination or urinary frequency Musculo: Denies: back pain, neck pain or extremity pain Neuro: Reports: weakness in extremities, lack of coordination, vertigo and confusion; Denies: headache Endo: Reports: fatigue PFSH PFSH Social History What is your current living situation?: I presently have a place to live Problems where you live: no known problems Problems where you live details: n/a In the past 12 months, utilities in danger of being shut off: no In past 12 months, lack of transportation kept you from medical appts, meetings, work, or getting things needed for daily living: no In the past 12 mos, have been you worried that your food would run out before you had money to buy more?: never true In the past 12 mos, the food you bought just didn't last and you didn't have money to buy more?: never true Smoking Status: Never smoker Second hand tobacco smoke exposure: No How often do you have a drink containing alcohol: never How often do you have six or more drinks on one occasion: Never AUDIT-C Alcohol total score: 0 Non-prescribed substance use: denies use Caffeine: No How often does anyone, including family, friends and others, physically hurt you: never How often does anyone, including family, friends and others, insult or talk down to you: never How often does anyone, including family, friends and others, threaten you with harm: never How often does anyone, including family, friends and others, scream or curse at you: never Exam Narrative: Exam Narrative: Alert and oriented. Does have moments where she has problems finding words but appears to know exactly what she wants to say. GCS 15. Head is atraumatic. Normocephalic. EOM is full and pupils equal round reactive. Face symmetrical. Eyebrow raise smile symmetrical tongue is midline. Neck is supple without lymphadenopathy. Heart with regular rate and rhythm. Lungs are clear bilaterally. Abdomen is soft nontender. Pelvis stable. Lower extremities without swelling. Able to lift both legs independently off the bed. Romberg is positive in that both arms cross over the midline. There is no drift laterally. Finger to nose is intact. Const: Vital Signs, click to edit/add: Vital Signs - 24 hr 04/26/25 11:01 04/26/25 13:55 Temperature 98 F Pulse Rate [Pulse Oximeter] 86 69 Respiratory Rate 18 Blood Pressure [Ri ght Upper Arm] 216/108 H 182/85 H Pulse Oximetry 99 100 Oxygen Delivery Me thod Room Air Room Air Documenting provider has reviewed patient's vital signs: yes Course Course ED Course: Differential diagnosis includes but is not limited to parathyroid elevation, underlying malignancy, vitamin-D toxicity. This time will recheck calcium, order IN eyes calcium, EKG, PTH, urinalysis and vitamin-D. Patient's brother arrives. I do explain to him likely need for hospitalization although CT of the abdomen is currently pending. He appears to understand that and has been cooperative. Vital Signs Vital signs: Initial Vital Signs Temperature 98 F 04/26/25 11:01 Temperature Source Temporal Artery Scan 04/26/25 11:01 Pulse Rate 86 04/26/25 11:01 Respiratory Rate 18 04/26/25 11:01 Blood Pressure 216/108 H 04/26/25 11:01 Blood Pressure Mean 144 H 04/26/25 11:01 Blood Pressure Position Sitting 04/26/25 11:01 Pulse Oximetry 99 04/26/25 11:01 Oxygen Delivery Method Room Air 04/26/25 11:01 Vital Signs Temperature 98 F 04/26/25 11:01 Pulse Rate 86 04/26/25 11:01 Respiratory Rate 18 04/26/25 11:01 Blood Pressure 216/108 H 04/26/25 11:01 Pulse Oximetry 99 04/26/25 11:01 Oxygen Delivery Method Room Air 04/26/25 11:01 Temperature 97.6 F 04/26/25 16:14 Pulse Rate 73 04/26/25 16:14 Respiratory Rate 18 04/26/25 16:14 Blood Pressure 151/100 H 04/26/25 16:14 Pulse Oximetry 99 04/26/25 16:14 Oxygen Delivery Method Room Air 04/26/25 16:17 Medications Administered Medications: Generic Name Dose Route Start Last Admin Trade Name Freq PRN Reason Stop Dose Admin Calcitonin Butler 180 unit 04/26/25 15:00 04/26/25 15:18 Calcitonin,Butler,Synthetic 200 Unit/Ml Inj SUBCUT 180 unit Q12H JUDY Administration Discontinued Medications Generic Name Dose Route Start Last Admin Trade Name Freq PRN Reason Stop Dose Admin Sodium Chloride 1,000 mls @ 1,000 mls/hr 04/26/25 11:51 04/26/25 13:04 0.9 % Sodium Chloride 1000 Ml IV 04/26/25 12:50 1,000 mls/hr .Q1H JUDY Administration Sodium Chloride 1,000 mls @ 1,000 mls/hr 04/26/25 14:46 04/26/25 14:52 0.9 % Sodium Chloride 1000 Ml IV 04/26/25 15:45 1,000 mls/hr .Q1H JUDY Administration Medical Decision Making MDM Narrative Medical decision making narrative: 1. Hypercalcemia-ionized calcium elevated 1.8 and calcium elevated at 15.1. Human is normal. PTH is normal as was vitamin-D. This most likely represents sequela of a malignancy. CT unfortunately shows retroperitoneal lymphadenopathy. In the main body of the CT report there is a questionable upper abdominal mass. Unfortunately CT was done without the contrast given elevated creatinine. Likely will need to repeat this tomorrow with contrast. IV fluids started in the emergency room. No further medications given at this time. EKG reassuring with no significant arrhythmia. 2. Uncertain social situation-primary m.d. notes some challenges with patient's brother as he has been helping her with cares. Notes that there have been some home arguments regarding an appointment for today and cancelling of her appointment at the clinic. His behavior here in the emergency room has been appropriate today 3. Weakness-most likely secondary to 1. TSH normal as is white count and hemoglobin EKG without acute ST or T-wave changes. 4. Constipation-likely secondary to 1. 5. Confusion-most likely to 1. Patient also experience fall a few weeks ago and fortunately no evidence of sub dural hematoma skull fracture or cervical spine injury. 6. Disposition-inpatient admission under the care of the hospitalist . Medical Records Medical records reviewed: Yes I reviewed the patient's medical records Lab Data Lab results reviewed: Yes I reviewed the patient's lab results Labs: Lab Results 04/26/25 04/26/25 Range/Units 12:15 14:00 Sodium 133 L (135-149) mmol/L Potassium 3.6 (3.6-5.1) mmol/L Chloride 98 (96-114) mmol/L Carbon Dioxide 29 (20-32) mmol/L Anion Gap 6 L (7-15) mEq/L BUN 30 (7-30) mg/dL Creatinine 1.7 H (0.5-1.5) mg/dL Estimated Creat Clear 16.98 Estimated GFR 29 ml/min Glucose 111 (60-115) mg/dL Calcium 15.1 H* (8.4-10.6) mg/dL Ionized Calcium Cindy 1.84 H (1.11-1.30) mmol/L Total Bilirubin 0.6 (0.1-1.5) mg/dL AST 46 H (12-35) U/L ALT 15 (4-35) U/L Alkaline Phosphatase 51 (40-150) U/L Total Protein 7.4 (6.0-8.3) g/dL Albumin 4.2 (3.3-5.0) g/dL 25-OH Vitamin D Total 71 (30-80) ng/mL PTH Intact 24.3 (14.2-75.2) pg/mL Urine Color Yellow (Yellow) Urine Appearance Clear (Clear) Urine pH 6.5 (5.0-8.5) Ur Specific [place] 1.015 (1.000-1.030) Urine Protein Trace A (Negative) Urine Glucose (UA) Negative (Negative) Urine Ketones Negative (Negative) Urine Blood Negative (Negative) Urine Nitrite Negative (Negative) Urine Bilirubin Negative (Negative) Urine Urobilinogen 0.2 (0.2-1.0) Ur Leukocyte Esterase Trace A (Negative) Urine RBC 0-2 (0-2) Urine WBC 5-10 A (0-5) Ur Squamous Epith Cells Few (None-Few) Calcium Oxalate Crystal Few A (None) Amorphous Sediment Few A (None) Urine Bacteria Few A (None) Imaging Data CT scan - head: Attestation: I have reviewed the pertinent imaging results. Cervical spine CT: Attestation: I have reviewed the pertinent imaging results. ECG Data Attestation: I personally reviewed and interpreted this ECG as follows: Interpretation: Sinus rhythm at a rate of 68. I do not note any acute ST or T-wave injuries. QT and KS intervals within normal limits. Discharge Plan Discharge Clinical Impression: Hypercalcemia, Lymphadenopathy, retroperitoneal, Confusion, Constipation, Vertigo Patient Disposition: Admitted As Inpatient Condition: Improved
--- NOTE | 2025-04-26 11:50 | CRLHL7_ITS ---
For Patients: As a result of the 21st Century Cures Act, medical imaging exams and procedure reports are released immediately into your electronic medical record. You may view this report before your referring provider. If you have questions, please contact your health care provider. Indication: FALL 04/23/25, HYPERCALCEMIA WITH SIGNIFICANT WT LOSS Technique: CT of the chest, abdomen, and pelvis was obtained without intravenous contrast. Please note that all CT scans at this facility use dose modulation, iterative reconstruction, and/or weight-based dosing when appropriate to reduce radiation dose to as low as reasonably achievable. Comparison: None. Findings: CHEST: Medical devices: None. Thyroid: Normal. Lymph nodes: Limited evaluation without IV contrast. No supraclavicular, axillary, mediastinal, or hilar lymphadenopathy. Vasculature: Limited evaluation without IV contrast. Aorta and main pulmonary artery diameters are within normal range. Mild aortic calcification. Heart: Moderate coronary artery calcification. Trace pericardial effusion. Other mediastinal structures: Normal noncontrast appearance. Lung parenchyma and pleura: Moderate biapical pleural-parenchymal scarring. Airways: No significant abnormality. Chest wall: No significant abnormality. ABDOMEN/PELVIS: Liver and biliary tree: Subcentimeter hypoattenuating lesions are too small to characterize and favored to represent cysts. Calcified granuloma. Gallbladder: Normal Spleen: Normal noncontrast appearance. Pancreas: Mild fatty atrophy. Adrenal glands: Normal noncontrast appearance. Kidneys and ureters: Atrophic right kidney. 4.9 centimeter right renal cyst (4/121). No hydronephrosis or obstructing renal calculi. Gastrointestinal tract: Mild sigmoid diverticulosis without CT evidence of acute diverticulitis. Moderate stool burden is seen throughout the colon. No evidence of acute appendicitis. No evidence of bowel obstruction. Peritoneal cavity: Normal Bladder: Normal Pelvic organs: Status post hysterectomy. Vasculature: Moderate calcification. Lymph nodes: Suboptimally evaluated in the absence of intravenous contrast. Retroperitoneal lymphadenopathy measuring up to 3.3 x 2.5 centimeter in the left iliac region (4/149). Ill-defined mass in the upper retroperitoneum measuring roughly 5.1 x 4.1 centimeter (4/100). Abdominal wall: Normal Musculoskeletal: Moderate degenerative changes of the visualized spine and bilateral hips. Impression: 1. Retroperitoneal lymphadenopathy, which is suboptimally evaluated in the absence of intravenous contrast. Findings are concerning for malignancy. Consider contrast-enhanced examination for further evaluation. 2. Trace pericardial effusion. 3. No acute intrathoracic or intra-abdominal injury is seen. Please note that all CT scans at this facility use dose modulation, iterative reconstruction, and/or weight-based dosing when appropriate to reduce radiation dose to as low as reasonably achievable. Dictated by Praneeth Saxena MD @ 04/26/2025 1:22:30 PM (Electronically Signed)
--- NOTE | 2025-04-26 11:50 | CT_ITS ---
Patient: LIZZETH AKERS Facility:?[facility] Patient ID:?[id number] Site Patient ID:?[id number]. Site :?[id number] Study:?CT-Head WITHOUT-04/26/2025 12:57:41 PM Ordering Physician:Mathew Mullins Final Report: INDICATION: Fall on 04/23/2025, vertigo TECHNIQUE: Head CT without contrast. COMPARISON: None. FINDINGS: CSF spaces: Within normal limits for age. Brain parenchyma and extra-axial spaces: There are nonspecific low attenuation white matter changes consistent with chronic microvascular disease. No sign of mass, hemorrhage, or midline shift. Generalized volume loss. Scattered atherosclerotic calcifications. Skull base and calvarium: The visualized paranasal sinuses and mastoid air cells demonstrate no acute or significant findings. The visualized orbits are grossly unremarkable. No skull fractures. IMPRESSION: No acute intracranial abnormality. Please note that all CT scans at this facility use dose modulation, iterative reconstruction, and/or weight-based dosing when appropriate to reduce radiation dose to as low as reasonably achievable. Dictated by Mary Patterson MD @ 04/26/2025 1:04:31 PM Signed by:?Mary Patterson MD @04/26/2025 1:04:31 PM (Electronic Signature)
--- NOTE | 2025-04-26 11:50 | CT_ITS ---
Patient: LIZZETH AKERS Facility:?[facility] Patient ID:?[id number] Site Patient ID:?[id number]. Site :?[id number] Study:?CT-Spine Cervical -04/26/2025 12:57:54 PM Ordering Physician:Mathew Mullins Final Report: INDICATION: Fall on 04/23/2025 TECHNIQUE: CT cervical spine without contrast. COMPARISON: None. FINDINGS: Vertebrae: Trace anterolisthesis of C7 on T1. There are no fractures or suspicious bony lesions. The bones appear demineralized. Discs and facet joints: There is mild multilevel degenerative disc disease most severe at C5-6 and C6-7. There are multilevel degenerative changes in the facets. Extraspinal findings: Carotid and vertebral artery calcifications are present. IMPRESSION: No acute abnormality of the cervical spine. Please note that all CT scans at this facility use dose modulation, iterative reconstruction, and/or weight-based dosing when appropriate to reduce radiation dose to as low as reasonably achievable. Dictated by Mary Patterson MD @ 04/26/2025 1:07:36 PM Signed by:?Mary Patterson MD @04/26/2025 1:07:36 PM (Electronic Signature)
[2025-04-26 12:23] LABS: Ionized Calcium* 1.84 mmol/L (1.11-1.30)
[2025-04-26 13:02] LABS: Calcium* 15.1 mg/dL (8.4-10.6)
[2025-04-26 13:23] LABS: PTH Intact* 24.3 pg/mL (14.2-75.2)
[2025-04-26 13:31] LABS: Vitamin D 25 Hydroxy* 71 ng/mL (30-80)
[2025-04-26 14:21] LABS: Appearance Urine Clear (Clear)
[2025-04-26 14:46] LABS: Albumin* 4.2 g/dL (3.3-5.0); Chloride* 98 mmol/L (96-114); Potassium* 3.6 mmol/L (3.6-5.1); Sodium* 133 mmol/L (135-149)
[2025-04-26 14:49] LABS: Alanine Aminotransferase* 15 U/L (4-35); Alkaline Phosphatase* 51 U/L (40-150); Anion Gap 6 mEq/L (7-15); Aspartate Amino Transferase* 46 U/L (12-35); Bilirubin Total* 0.6 mg/dL (0.1-1.5); Blood Urea Nitrogen* 30 mg/dL (7-30); Carbon Dioxide* 29 mmol/L (20-32); Creatinine* 1.7 mg/dL (0.5-1.5); Est. Creatinine Clearance* 16.98; Estimated Glomerular Filt Rate 29 ml/min; Glucose* 111 mg/dL (60-115); Total Protein* 7.4 g/dL (6.0-8.3)
[2025-04-26] MEDS: CALCITONIN,SALMON,SYNTHETIC 200 UNIT/ML inj 180 UNIT SUBCUT (15:18)
--- NOTE | 2025-04-26 16:57 | PC.NURSE ---
End of shift [id number] - Pt arrived from ED at approximately 1435. Pt alert, oriented to self. RN noted pt had difficulty with train of thought and word finding. Pt denies pain, SOB, n/v. Reports dizziness with standing. Standby assist/assist x1 with stand/pivot to commode. Appears to be resting comfortably at end of shift with call light within reach.
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
[2025-04-26] MEDS: ZOLEDRONIC ACID 3 MG in 0.9 % SODIUM CHLORIDE 100 ml 100 ML 103.75 MG IVPB (18:10)
[2025-04-26 18:39] LABS: Ionized Calcium* 1.65 mmol/L (1.11-1.30)
[2025-04-26 19:16] LABS: Chloride* 105 mmol/L (96-114); Sodium* 136 mmol/L (135-149)
[2025-04-26 19:17] LABS: Potassium* 3.2 mmol/L (3.6-5.1)
[2025-04-26 19:20] LABS: Anion Gap 3 mEq/L (7-15); Blood Urea Nitrogen* 25 mg/dL (7-30); Carbon Dioxide* 28 mmol/L (20-32); Creatinine* 1.5 mg/dL (0.5-1.5); Est. Creatinine Clearance* 19.58; Estimated Glomerular Filt Rate 34 ml/min; Glucose* 110 mg/dL (60-115)
[2025-04-26 19:30] LABS: Calcium* 13.1 mg/dL (8.4-10.6)
[2025-04-26] MEDS: POTASSIUM CHLORIDE 10 MEQ CAPSULE ER 40 MEQ PO (19:54)
[2025-04-26] MEDS: SODIUM CHLORIDE 0.9 % (FLUSH) 10 ML SYRINGE 5 ML IVF (20:56)
[2025-04-26] MEDS: ENOXAPARIN 30 MG/0.3ML INJ SUBCUT (21:00)
--- NOTE | 2025-04-26 22:31 | PC.NURSE ---
End of shift [id number]: Pt AxOx4, pleasant, and cooperative. Intermittent confusion. A1 with hand holding. Unsteady gait present. Pivot to bedside commode used. Pt voiding and has had multiple bowel movements. Diarrhea present. Pt reported not having a bowel movement in over a week and took a ?handful of pills? to help Pt pass a stool before coming into the emergency department. Pt denies pain/SOB/headache/dizziness at this time. Pt had a couple of bites of dinner and reported not hungry. NS running @ 100 ml/hr. Call light within reach.
[2025-04-27] VITALS (9 sets, daily range): BP systolic 98–176; BP diastolic 69–92; PULSE 64–87; RESP 14–20; TEMP 36.9–37.7; O2SAT 97–100; BMI 17.4
[2025-04-27] MEDS: CALCITONIN,SALMON,SYNTHETIC 200 UNIT/ML inj 180 UNIT SUBCUT ×2 (02:31→15:15)
[2025-04-27] MEDS: ONDANSETRON 2 MG/ML inj 4 MG IVP ×4 (05:50→22:11)
[2025-04-27 06:26] LABS: Ionized Calcium* 1.40 mmol/L (1.11-1.30); Lactate* 1.3 mmol/L (0.5-1.9)
[2025-04-27 06:31] LABS: Hematocrit 34.6 % (33.0-51.0); Hemoglobin* 11.7 gm/dL (12.0-16.0); Immature Granulocytes Abs Auto 0.01 K/uL (0.00-0.30); Immature Granulocytes Pct Auto 0.1 %; Mean Corpuscular HGB Conc 34 gm/dL (32-36); Mean Corpuscular Hemoglobin 28 pg (26-34); Mean Corpuscular Volume 84 fL (80-100); RDW Coefficient of Variation % 13.6 % (11.5-15.5); Red Blood Count 4.12 m/uL (4.00-5.20); White Blood Count* 6.86 K/uL (4.50-11.00)
[2025-04-27 06:33] LABS: Lymphocytes Absolute Auto 0.80 K/uL (0.90-2.90); Slide Review Reflex No
[2025-04-27 06:44] LABS: Chloride* 111 mmol/L (96-114)
[2025-04-27 06:45] LABS: Albumin* 3.6 g/dL (3.3-5.0); Potassium* 3.6 mmol/L (3.6-5.1); Sodium* 137 mmol/L (135-149)
[2025-04-27 06:47] LABS: Anion Gap 7 mEq/L (7-15); Blood Urea Nitrogen* 19 mg/dL (7-30); Carbon Dioxide* 19 mmol/L (20-32); Creatinine* 1.4 mg/dL (0.5-1.5); Est. Creatinine Clearance* 20.78; Estimated Glomerular Filt Rate 37 ml/min
--- NOTE | 2025-04-27 06:47 | PC.NURSE ---
The patient is quite confused and has a hard time conversing due to word finding issues. Alert to self and month only. The patient is impulsive and set off her bed alarm throughout the night. Removed tele stickers and removed tubi research development director around her IV and began to pull at the IV dressing. Educated regarding why she is in the hospital, and the patient is insistent on wanting to go home. I informed her it would be best if she would wait until she talked to the Dr. and understood what was going on. No reports of pain. The patient is noted to have an intentional generalized tremor. Calcitonin was given for hypercalcemia... 30 min following the patient was dry heaving and thought she was going to throw up. A small amount of bile was noted, but nothing in cc to account for. Up to commode AX1 due to being unsteady. Sips of fluids throughout the night. Call light in reach and alarms are on. Reports a decreased appetite and attempted to eat and the patient began to gag. PRN 1X dose of zofran was given. 1 BM this shift. MAUDE BOOTH BSN
[2025-04-27 06:48] LABS: Alanine Aminotransferase* 14 U/L (4-35); Alkaline Phosphatase* 44 U/L (40-150); Aspartate Amino Transferase* 34 U/L (12-35); Bilirubin Total* 0.6 mg/dL (0.1-1.5); Calcium* 11.4 mg/dL (8.4-10.6); Glucose* 115 mg/dL (60-115); Total Protein* 6.4 g/dL (6.0-8.3)
[2025-04-27 07:21] LABS: Erythrocyte SedimentationRate* 7 mm/hr (2-20)
--- NOTE | 2025-04-27 09:28 | CRLHL7_ITS ---
For Patients: As a result of the 21st Century Cures Act, medical imaging exams and procedure reports are released immediately into your electronic medical record. You may view this report before your referring provider. If you have questions, please contact your health care provider. INDICATION: Weight loss, hypercalcemia, retroperitoneal adenopathy. COMPARISON: 04/26/2025 TECHNIQUE: CT of the abdomen and pelvis with intravenous contrast. Multiplanar axial, coronal, and sagittal reformats were reconstructed. Contrast: 98 mL. FINDINGS: Lung bases: Mild respiratory motion. Minimal linear atelectasis. Cardiac chambers are dilated. Liver: These are very well-circumscribed and do not appear to have any substantial internal enhancement. Very likely to be cysts. There are 3 hypoenhancing liver lesions. There is a 3 millimeter lesion in segment II, a 7 millimeter lesion in segment IV along the falciform ligament, and a 14 millimeter lesion in segment VII. Dilated intrahepatic IVC and hepatic veins with significant contrast reflux on the arterial phase exam. Gallbladder and bile ducts: Normal gallbladder. No intrahepatic biliary ductal dilatation. The extrahepatic bile duct is not dilated. It is deviated anteriorly due to the retrocaval adenopathy. Pancreas: The pancreas is anteriorly displaced by the retroperitoneal adenopathy. Generalized pancreatic parenchymal atrophy typical of age. No pancreatic cyst or mass. No pancreatic ductal dilatation. Spleen: Normal spleen size and enhancement. Adrenal glands: No adrenal nodules. Kidneys: Normal left renal size and position. Normal left renal parenchymal enhancement. No left-side cyst or mass. No left urinary tract calculus. There is some mild left pelviectasis. The left ureter is not dilated. The right kidney is moderately atrophic. There is a large simple renal cyst that arises from the right lower pole that measures 5.2 x 5.5 x 5.4 cm. No solid right renal mass. No right-sided urinary tract calculi or urinary tract dilatation. Right renal atrophy appears to be due to renal artery stenosis. The right renal artery has heavy atherosclerosis at its origin but is also completely encased in the adenopathy in the retroperitoneum. The right renal vein is patent and normal. There is significant compression of the left renal vein by the retroperitoneal adenopathy. Urinary bladder: Urinary bladder is barely filled. Pelvis: No cyst or mass. Pelvic venous congestion, slightly worse on the left than the right. There is collateralization into the systemic veins in the pelvis as well as dilatation of the left ovarian vein Vessels: Atherosclerosis. No abdominal aortic aneurysm. See discussion above regarding the right renal artery. The mesenteric splenic and portal veins are patent. See above regarding the left renal vein. The IVC and its other tributaries are normal.. Bowel: No dilated or inflamed bowel. Normal appendix. Mild stool burden. Lymph nodes: Lower mediastinal and retroperitoneal adenopathy. Inferior mediastinal, paraesophageal: 1.1 x 1.8 cm on series 7, image 15. Right superior aortocaval: 2.7 x 4.6 cm on series 7, image 35. Posterior peripancreatic: 1.9 x 3.0 on series 7, image 37. Left periaortic: 2.6 x 3.3 cm on series 7, image 52 Inferior aortocaval: 0.8 x 0.7 cm on series 7, image 58. Left lower periaortic: 1.3 x 1.1 cm on series 7, image 59. Central mesentery: 5.1 x 5.7 cm on series 7, image 88. Peritoneum: Trace ascites. Abdominal wall: No hernia. Bones: No fractures. No focal worrisome bone lesions. IMPRESSION: 1. Paraesophageal / mediastinal, retroperitoneal, and mesenteric adenopathy. Favor lymphoma/lymphoproliferative disorder. 2. Right renal atrophy. There is significant atherosclerosis at the origin of the right renal artery. There may also be some contribution due to the right renal artery being completely effaced or compressed by the retroperitoneal adenopathy. 3. Substantial compression of the left renal vein by the adenopathy. The left ovarian vein is dilated and there are dilated pelvic collaterals. 4. Findings of elevated right heart pressure and hepatic venous congestion. Liver lesions appear to be cysts. Please note that all CT scans at this facility use dose modulation, iterative reconstruction, and/or weight-based dosing when appropriate to reduce radiation dose to as low as reasonably achievable. Dictated by Hazle Billingsley MD @ 04/27/2025 10:31:26 AM (Electronically Signed)
[2025-04-27] MEDS: ASPIRIN 81 MG TAB.CHEW PO (09:38)
--- NOTE | 2025-04-27 09:51 | PC.SOCIAL ---
Social work: Per MD request for social work assessment of possible Adult Protection Concerns, called [facility] Adult protection and spokw with Silva who confirmed there is no current open Adult Protection case on this patient. youth support worker to follow up as needed.
[2025-04-27] MEDS: FUROSEMIDE 10 MG/ML inj 20 MG IVP (11:38)
[2025-04-27] MEDS: POTASSIUM CHLORIDE 10 MEQ CAPSULE ER 20 MEQ PO (11:39)
--- NOTE | 2025-04-27 14:50 | PC.SOCIAL ---
Discharge planning: Met with pt who states her brother moved in with her because he was having medical problems and needed her help and now she needs his help. Pt states she has no concerns about her living situation prior to admission and that her brother was assisting her as needed at home. Pt would like to have a better idea of what her needs will be at discharge before deciding on a discharge plan from the hospital. She is currently agreeable to a short term rehab stay at a SNF if needed but is hoping to be able to return home. 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 Pt was pleased with the visit and invited child protective services social worker to visit again. Per ED MD charting, primary care physician had questioned pt's ability to be cared for by brother at home. pick up worker to continue to assess discharge plan and work with pt and family regarding safe options. pick up worker to follow up as needed.
--- NOTE | 2025-04-27 15:01 | P.IMPN_ITS ---
Assessment and Plan Assessment and plan (1) Hypercalcemia: Problem comment: Severe hypercalcemia, 15.1, with low normal PTH. Likely from malignancy. PTH RP pending. Improving with treatment Status: Acute (2) Lymphadenopathy, retroperitoneal: Problem comment: Likely malignant, possibly lymphoma. Needs tissue diagnosis and Oncology follow-up Status: Acute (3) ALEXANDER (acute kidney injury): Problem comment: Patient's creatinine back in December 2024 was 1.2. Creatinine at presentation is 1.7. Improving with fluids and treating hypercalcemia Continue maintenance IV fluid pending improved oral intake Status: Acute (4) Malnutrition: Problem comment: 8.6 kg or 19 lbs of weight loss/20% of body weight in the past 3 months. Appears primarily due to poor appetite and poor oral intake which is likely due to malignancy and hypercalcemia Status: Acute (5) History of coronary artery disease: Problem comment: NSTEMI (non-ST elevated myocardial infarction) 03/12/2021 ANITHA to Fausto THOMPSON. Patient is not taking her aspirin, she states that she does not know about it. Ordered aspirin 81 mg daily Status: Acute (6) Constipation: Problem comment: According to her brother no bowel movement in 10 days. Likely due to poor oral intake and hypercalcemia Status: Acute (7) Delirium: Problem comment: Patient appears to have some hospital acquired delirium but also significant cognitive impairment not previously diagnosed Status: Acute (8) Cognitive impairment: Problem comment: Patient is quite cognitively impaired though difficult to assess today due to coexisting delirium. Reassess with time and correction of hypercalcemia Status: Acute Plan 85-year-old female admitted to the hospital with hypercalcemia and probable abdominal malignancy. Plan is to correct her calcium, address her nutrition and discharged for outpatient workup of presumed malignancy. This may be challenging if she is unable to improve her oral intake which is currently very poor. Total Time Spent Total Time Spent: Total time spent today is 75 minutes in reviewing outside records, coordination of care, discussion with patient her brother and her son about ongoing management of above problems. Subjective Date Seen: 04/27/25 Interval history: 85-year-old female admitted to the hospital for hypercalcemia. Patient is confused and disoriented this morning and gives limited history.. History is obtained from the medical record and then from her brother, Ricky, who this with her. Her brother indicates that she has had a recent decline with weight loss and poor appetite over the last few weeks. He is most concerned that she has not had a bowel movement in 10 days. He otherwise reports things are going well for her. She may be getting weaker and she uses the miller and furniture to steady herself when she is walking. She reports no appetite. She does report some vague abdominal pain. She is uncertain about her constipation. She reports no dyspnea. No urinary symptoms. Nursing staff report that she has had some nausea and has been eating very little. In reviewing medical records I see that her weight has been stable until January 032024 when her weight was 53.1 kg in the clinic. Two days ago on April 25 her weight was 44.5 kg, down 8.6 kg or 19 lb since December. Her brother thinks most of that weight loss has been more recent. Her calcium level in December was normal. She has a history of coronary artery disease but has had no symptoms chest pain or dyspnea. She had coronary artery angiogram with stenting of the mid LAD and proximal circumflex. Echocardiogram at that time was showing an ejection fraction of 66% no significant valvular disease and moderate LV diastolic dysfunction. Initial laboratory evaluations showed a calcium of 15.1 with an ionized calcium of 1.84. Phosphorus 2.6, creatinine of 1.7. (Creatinine in 2021 was 0.87.) CT chest, abdomen and pelvis showed prominent retroperitoneal lymphadenopathy. Solid tumor suspected. Subsequent IV contrast with CT abdomen and pelvis suggest this is more likely lymphoma. Radiologist thinks there may be lesions near the kidney that would be assessable percutaneously but this would need to be done at [facility]. 04/27/2025: Patient is confused. Not oriented to circumstances or place. Gives limited history. Mildly restless and anxious to go home. Reports no appetite and is resisting eating and drinking. She has received calcitonin, normal saline and Zometa and calcium is improved to 11.4 and creatinine is improved to 1.4. Exam Narrative: Exam Narrative: She is alert, mildly restless and appears in no distress. Disoriented to circumstances. Mildly anxious. Asking to go home. Head is without trauma. Eyes normal. Oropharynx normal. Neck is supple without mass or adenopathy. Respirations are clear to auscultation. Cardiovascular: S1, S2, regular rate and rhythm. Abdomen: Bowel sounds active. Abdomen is soft with mild diffuse tenderness. Voluntary guarding. Possible mass in her mid upper abdomen. No peritonitis. Extremities without edema. Intact peripheral pulses. She moves all 4 extremities well. No rash Const: Vital Signs, click to edit/add: Vital Signs - 24 hr 04/26/25 16:07 04/26/25 16:09 04/26/25 16:14 Temperature 97.6 F 97.6 F Pulse Rate Pulse Rate [Pulse Oximeter] 69 73 Respiratory Rate 20 18 Blood Pressure [Le ft Arm] Blood Pressure [Ri ght Arm] 173/99 H 151/100 H Pulse Oximetry 100 100 99 Oxygen Delivery Me thod Room Air Room Air 04/26/25 16:17 04/26/25 18:17 04/26/25 19:12 Temperature 98.2 F Pulse Rate 73 Pulse Rate [Pulse Oximeter] 69 Respiratory Rate 16 Blood Pressure [Le ft Arm] Blood Pressure [Ri ght Arm] 141/93 H Pulse Oximetry 99 Oxygen Delivery Tn thod Room Air Room Air 04/26/25 23:00 04/26/25 23:00 04/27/25 02:36 Temperature 98.7 F 99.0 F Pulse Rate Pulse Rate [Pulse Oximeter] 72 75 Respiratory Rate 16 18 Blood Pressure [Le ft Arm] Blood Pressure [Ri ght Arm] 132/75 98/79 Pulse Oximetry 99 100 98 Oxygen Delivery Tn thod Room Air Room Air 04/27/25 07:33 04/27/25 09:33 04/27/25 09:33 Temperature 98.5 F Pulse Rate 76 Pulse Rate [Pulse Oximeter] 86 Respiratory Rate 14 Blood Pressure [Le ft Arm] Blood Pressure [Ri ght Arm] 110/92 H Pulse Oximetry 97 97 Oxygen Delivery Tn thod Room Air 04/27/25 09:33 04/27/25 11:44 Temperature 99.6 F Pulse Rate Pulse Rate [Pulse Oximeter] 86 64 Respiratory Rate 14 20 Blood Pressure [Le ft Arm] 157/69 H Blood Pressure [Ri ght Arm] Pulse Oximetry 99 Oxygen Delivery Tn thod Room Air Labs Labs: Laboratory Results - last 24 hr 04/26/25 04/26/25 04/27/25 14:46 16:40 06:20 WBC 6.86 RBC 4.12 Hgb 11.7 L Hct 34.6 MCV 84 MCH 28 MCHC 34 RDW Coeff of Diane 13.6 Plt Count 230 Neut % (Auto) 80.5 H Lymph % (Auto) 11.1 L [place] % (Auto) 8.2 Eos % (Auto) 0.0 Baso % (Auto) 0.1 Neut # (Auto) 5.50 Lymph # (Auto) 0.80 L [place] # (Auto) 0.60 Eos # (Auto) 0.00 Baso # (Auto) 0.01 Abs Immat Gran (auto) 0.01 Imm/Tot Granulo (auto) 0.1 ESR 7 Sodium 136 137 Potassium 3.2 L 3.6 Chloride 105 111 Carbon Dioxide 28 19 L Anion Gap 3 L 7 BUN 25 19 Creatinine 1.5 1.4 Estimated Creat Clear 19.58 20.78 Estimated GFR 34 37 Glucose 110 115 Lactate 1.3 Calcium 13.1 H* 11.4 H Ionized Calcium Cindy 1.65 H 1.40 H Phosphorus 2.6 Magnesium 1.9 Total Bilirubin 0.6 AST 34 ALT 14 Alkaline Phosphatase 44 Total Protein 6.4 Albumin 3.6 Lab Acknowledgement Test Added 04/27/25 09:13 WBC RBC Hgb Hct MCV MCH MCHC RDW Coeff of Diane Plt Count Neut % (Auto) Lymph % (Auto) [place] % (Auto) Eos % (Auto) Baso % (Auto) Neut # (Auto) Lymph # (Auto) [place] # (Auto) Eos # (Auto) Baso # (Auto) Abs Immat Gran (auto) Imm/Tot Granulo (auto) ESR Sodium Potassium Chloride Carbon Dioxide Anion Gap BUN Creatinine Estimated Creat Clear Estimated GFR Glucose Lactate Calcium Ionized Calcium Cindy Phosphorus Magnesium Total Bilirubin AST ALT Alkaline Phosphatase Total Protein Albumin Lab Acknowledgement Test Added
--- NOTE | 2025-04-27 18:09 | PC.NURSE ---
End of Shift: Patient pleasant and cooperative. Patient is alert and is oriented at times, but is also not completely oriented at times. Patient did ask where she was once, today. Patient is vitally stable, lungs clear, BS active this afternoon, IV running NS at 100. Patient denies pain but does report a stomach ache. Zophran given x2 today, unmeasurable emesis x2 today. Patient took in 25% of ensure, and has bites of dinner. Patient is 1 assist/walker, and urinating well, ambulating to toilet. Patient has been up to chair but spend most time in bed.Tele=NSR
[2025-04-27] MEDS: ENOXAPARIN 30 MG/0.3ML INJ SUBCUT (20:23)
[2025-04-27] MEDS: SENNOSIDES 1 TAB TABLET 2 TAB PO (20:23)
[2025-04-27] MEDS: SODIUM CHLORIDE 0.9 % (FLUSH) 10 ML SYRINGE 5 ML IVF (20:24)
[2025-04-27] MEDS: MELATONIN 3 MG TABLET PO (23:55)
[2025-04-28] VITALS (11 sets, daily range): BP systolic 130–159; BP diastolic 76–143; PULSE 66–83; RESP 12–18; TEMP 36.9–37.7; O2SAT 94–98
[2025-04-28] MEDS: ONDANSETRON 2 MG/ML inj 4 MG IVP ×3 (06:14→20:59)
[2025-04-28] MEDS: SODIUM CHLORIDE 0.9 % (FLUSH) 10 ML SYRINGE 5 ML IVF ×3 (06:15→20:54)
[2025-04-28 06:42] LABS: Chloride* 109 mmol/L (96-114); Potassium* 3.3 mmol/L (3.6-5.1); Sodium* 139 mmol/L (135-149)
[2025-04-28 06:45] LABS: Anion Gap 6 mEq/L (7-15); Blood Urea Nitrogen* 21 mg/dL (7-30); Calcium* 10.8 mg/dL (8.4-10.6); Carbon Dioxide* 24 mmol/L (20-32); Creatinine* 1.5 mg/dL (0.5-1.5); Est. Creatinine Clearance* 19.29; Estimated Glomerular Filt Rate 34 ml/min; Glucose* 117 mg/dL (60-115)
--- NOTE | 2025-04-28 06:50 | PC.NURSE ---
Pt is alert and oriented to self, pt knows she is in the hospital but not which hospital and she knew what month and year it was but not the day. Pt had x3 episode of brown liquid emesis one that was unmeasurable and the other two around 5 ml each, nausea managed with PRN medication. Pt is up A1/SBA with walker and gait belt.?
[2025-04-28] MEDS: METOCLOPRAMIDE HCL 5 MG/ML INJ IVP ×3 (08:48→17:38)
[2025-04-28] MEDS: POTASSIUM CHLORIDE 10 MEQ CAPSULE ER 20 MEQ PO (10:08)
[2025-04-28] MEDS: SENNOSIDES 1 TAB TABLET 2 TAB PO (10:09)
[2025-04-28] MEDS: ACETAMINOPHEN 325 MG TABLET 650 MG PO ×2 (10:09→19:46)
[2025-04-28] MEDS: ASPIRIN 81 MG TAB.CHEW PO (10:09)
--- NOTE | 2025-04-28 11:30 | P.IMPN_ITS ---
Assessment and Plan Assessment and plan (1) Hypercalcemia: Problem comment: Severe hypercalcemia, 15.1, with low normal PTH. Likely from malignancy. PTH RP pending. Improving with treatment. Status: Acute (2) Intractable nausea and vomiting: Problem comment: Severe and unrelenting. Very poor oral intake. Ongoing evaluation to include possible brain MRI for metastatic disease, upper GI with small-bowel follow- through or endoscopy. Status: Acute (3) Lymphadenopathy, retroperitoneal: Problem comment: Likely malignant, possibly lymphoma. Needs tissue diagnosis and Oncology follow-up Status: Acute (4) ALEXANDER (acute kidney injury): Problem comment: Patient's creatinine back in December 2024 was 1.2. Creatinine at presentation is 1.7. Improving with fluids and treating hypercalcemia Continue maintenance IV fluid pending improved oral intake Status: Acute (5) Malnutrition: Problem comment: 8.6 kg or 19 lbs of weight loss/20% of body weight in the past 3 months. Appears primarily due to poor appetite and poor oral intake which is likely due to malignancy and hypercalcemia Status: Acute (6) History of coronary artery disease: Problem comment: NSTEMI (non-ST elevated myocardial infarction) 03/12/2021 ANITHA to LAD, Cx. Patient is not taking her aspirin, she states that she does not know about it. Ordered aspirin 81 mg daily Status: Acute (7) Constipation: Problem comment: Likely due to poor oral intake. Continue laxatives Status: Acute (8) Delirium: Problem comment: On April 27 patient appeared to have hospital delirium. Now appears resolved Status: Acute (9) Cognitive impairment: Problem comment: Obtain Shock to evaluate Status: Acute Plan 85-year-old female admitted to the hospital with weight loss, hypercalcemia, presumed abdominal cancer or lymphoma. Hypercalcemia is improving but she is very poorly tolerating any p.o. food and fluid. Continue evaluation for nausea and vomiting with a goal of getting her to be able to eat and drink and get outpatient diagnostic testing and follow-up with Oncology. Total time spent today is 60 minutes in discussing with patient and family the ongoing challenges and plan of care Subjective Date Seen: 04/28/25 Interval history: 85-year-old female admitted to the hospital for hypercalcemia. Patient is confused and disoriented this morning and gives limited history.. History is obtained from the medical record and then from her brother, Ricky, who this with her. Her brother indicates that she has had a recent decline with weight loss and poor appetite over the last few weeks. He is most concerned that she has not had a bowel movement in 10 days. He otherwise reports things are going well for her. She may be getting weaker and she uses the miller and furniture to steady herself when she is walking. She reports no appetite. She does report some vague abdominal pain. She is uncertain about her constipation. She reports no dyspnea. No urinary symptoms. Nursing staff report that she has had some nausea and has been eating very little. In reviewing medical records I see that her weight has been stable until January 032024 when her weight was 53.1 kg in the clinic. Two days ago on April 25 her weight was 44.5 kg, down 8.6 kg or 19 lb since December. Her brother thinks most of that weight loss has been more recent. Her calcium level in December was normal. She has a history of coronary artery disease but has had no symptoms chest pain or dyspnea. She had coronary artery angiogram with stenting of the mid LAD and proximal circumflex. Echocardiogram at that time was showing an ejection fraction of 66% no significant valvular disease and moderate LV diastolic dysfunction. Initial laboratory evaluations showed a calcium of 15.1 with an ionized calcium of 1.84. Phosphorus 2.6, creatinine of 1.7. (Creatinine in 2021 was 0.87.) CT chest, abdomen and pelvis showed prominent retroperitoneal lymphadenopathy. Solid tumor suspected. Subsequent IV contrast with CT abdomen and pelvis suggest this is more likely lymphoma. Radiologist thinks there may be lesions near the kidney that would be assessable percutaneously but this would need to be done at [facility]. 04/27/2025: Patient is confused. Not oriented to circumstances or place. Gives limited history. Mildly restless and anxious to go home. Reports no appetite and is resisting eating and drinking. She has received calcitonin, normal saline and Zometa and calcium is improved to 11.4 and creatinine is improved to 1.4. 04/28/2025: She is seen with her son today. She seems more oriented to her circumstances and able to carry on a conversation. She verbalizes frustration with her very poor appetite. She also notes that when she does eat and drink will have an emesis shortly after eating and drinking. Emesis is nonbloody. She had couple bowel movements yesterday. She is reporting not having significant abdominal pain even when she has an emesis. Exam Narrative: Exam Narrative: She is alert and appears in no obvious distress. No facial asymmetry. Eyes are normal. Oropharynx with dry mucous membranes. Neck is supple without mass or adenopathy. Respirations are clear to auscultation without wheezing rales or rhonchi. Cardiovascular: S1, S2, 2/6 systolic murmur. No gallop or rub. Abdomen: Bowel sounds active. Abdomen is soft with mild epigastric tenderness. There is a fullness there suggestive of an abdominal mass. No peritonitis. External genitalia normal. Extremities without edema. Good peripheral pulses. Const: Vital Signs, click to edit/add: Vital Signs - 24 hr 04/27/25 11:44 04/27/25 15:02 04/27/25 15:02 Temperature 99.6 F 99.8 F H Pulse Rate Pulse Rate [Pulse Oximeter] 64 71 Respiratory Rate 20 18 Blood Pressure [Le ft Arm] 157/69 H Blood Pressure [Ri ght Arm] 147/75 H Pulse Oximetry 99 99 99 Oxygen Delivery Me thod Room Air Room Air 04/27/25 15:02 04/27/25 15:59 04/27/25 19:42 Temperature 98.6 F Pulse Rate 67 Pulse Rate [Pulse Oximeter] 71 87 Respiratory Rate 18 18 Blood Pressure [Le ft Arm] 172/87 H Blood Pressure [Ri ght Arm] Pulse Oximetry 98 Oxygen Delivery Me thod Room Air 04/27/25 22:19 04/27/25 22:19 04/27/25 22:19 Temperature 99.1 F Pulse Rate Pulse Rate [Pulse Oximeter] 70 70 Respiratory Rate 18 Blood Pressure [Le ft Arm] Blood Pressure [Ri ght Arm] 176/70 H Pulse Oximetry 100 100 Oxygen Delivery Me thod Room Air 04/27/25 22:51 04/28/25 02:45 04/28/25 07:00 Temperature 98.5 F 99.1 F Pulse Rate 73 Pulse Rate [Pulse Oximeter] 82 81 Respiratory Rate 18 Blood Pressure [Le ft Arm] 152/76 H 157/143 H Blood Pressure [Ri ght Arm] Pulse Oximetry 98 98 Oxygen Delivery Me thod Room Air Room Air 04/28/25 07:00 04/28/25 07:00 04/28/25 10:09 Temperature 99.1 F Pulse Rate Pulse Rate [Pulse Oximeter] 82 Respiratory Rate 18 Blood Pressure [Le ft Arm] Blood Pressure [Ri ght Arm] Pulse Oximetry 97 Oxygen Delivery Me thod Documenting provider has reviewed patient's vital signs: yes Labs Labs: Laboratory Results - last 24 hr 04/28/25 04/28/25 06:15 10:34 Sodium 139 Potassium 3.3 L Chloride 109 Carbon Dioxide 24 Anion Gap 6 L BUN 21 Creatinine 1.5 Estimated Creat Clear 19.29 Estimated GFR 34 Glucose 117 H Calcium 10.8 H Phosphorus 2.9 TSH 1.560 Lab Acknowledgement Test Added
[2025-04-28] MEDS: PROPRANOLOL 20 MG TABLET PO (12:00)
[2025-04-28] MEDS: OMEPRAZOLE 20 MG CAPSULE DR PO (12:00)
--- NOTE | 2025-04-28 12:35 | PC.NURSE ---
Nursing Care Hours: [id number] Pt this shift woke up irritable. Pt argumentative about time of day, pt thinking it was later in day at 0830 and was upset no one came in to check on her and that the Dr has not seen her yet. Pt arguing over the effectiveness of aromatherapy when it was offered. Pt felt nauseous and was trembling during assessment. Antiemetic given and pt allowed to rest 45min. Pt woke up stating she felt a little better and then after meeting with hospitalist, pt agreeable to POC and was pleasant. Took pills with pudding d/t pt feeling extra fluids is causing nausea/emesis. Pt struggled to swallow pudding stating if felt stuck and required sips of water. Ensure clear started, diluted with water to avoid extra sweetness. Up in chair after working with PT. Generalized pain treated with acetaminophen. Bilat palms appear reddened, hospitalist made aware.
--- NOTE | 2025-04-28 18:13 | PC.NURSE ---
End of Shift: Patient pleasant and cooperative, alert and oriented intermittently. Patient vitally stable, lungs fine crackles lower posterior lobes, BS WNL, IV SL and intact. Patient denies pain but will report upset stomach on and off. Patient has been sipping and working on one watered down clear ensure. Patients had some spoonfuls of soup and yogurt for dinner. Scheduled reglan given and zophran given x2. Patient has been up in chair on an off throughout day. Patient urinating well and had 2 BMs.Tele=NSR.
[2025-04-28] MEDS: ENOXAPARIN 30 MG/0.3ML INJ SUBCUT (20:53)
[2025-04-29] VITALS (7 sets, daily range): BP systolic 157–173; BP diastolic 79–101; PULSE 69–91; RESP 16–20; TEMP 36.4–37.6; O2SAT 91–97
--- NOTE | 2025-04-29 07:14 | PC.NURSE ---
Arrived to find the patient in bed and visiting with two family members. She was fully alert and oriented at this time but did make a few odd statements. Once her family had gone home and the hour reached around 2200 she was no longer oriented to where she was or why she was here. Unable to reorient. She has been up frequently to urinate with the assistance of a walker. One instance of no call light use before ambulation caught with bed alarm. Vitally they have been hypertensive and have ran a higher temperature. BP of 167/101 and a temperature of 99.7 degrees at 0255. Otherwise they have been ambulating with great strength and appear to be well outwardly. One instance of nausea reported before bed treated with IV Zofran which suppressed the sensation overnight. Tele box shows a normal sinus rhythm.
[2025-04-29 08:07] LABS: Chloride* 106 mmol/L (96-114); Potassium* 3.2 mmol/L (3.6-5.1); Sodium* 138 mmol/L (135-149)
[2025-04-29 08:10] LABS: Anion Gap 7 mEq/L (7-15); Blood Urea Nitrogen* 26 mg/dL (7-30); Carbon Dioxide* 25 mmol/L (20-32); Creatinine* 1.5 mg/dL (0.5-1.5); Est. Creatinine Clearance* 20.81; Estimated Glomerular Filt Rate 34 ml/min
[2025-04-29 08:11] LABS: Calcium* 10.5 mg/dL (8.4-10.6); Glucose* 98 mg/dL (60-115)
[2025-04-29] MEDS: METOCLOPRAMIDE HCL 5 MG/ML INJ IVP (08:21)
[2025-04-29] MEDS: ASPIRIN 81 MG TAB.CHEW PO (08:34)
[2025-04-29] MEDS: PROPRANOLOL 20 MG TABLET 40 MG PO ×2 (08:35→21:01)
[2025-04-29] MEDS: SENNOSIDES 1 TAB TABLET 2 TAB PO (08:37)
[2025-04-29] MEDS: POTASSIUM BICARB 25 MEQ EFFERVESCENT TAB PO ×2 (10:24→12:28)
[2025-04-29] MEDS: SODIUM CHLORIDE 0.9 % (FLUSH) 10 ML SYRINGE 5 ML IVF ×2 (10:24→21:21)
[2025-04-29] MEDS: METOCLOPRAMIDE 10 MG TABLET PO ×2 (11:08→17:10)
--- NOTE | 2025-04-29 13:43 | P.IMPN_ITS ---
Assessment and Plan Assessment and plan (1) Hypercalcemia: Problem comment: Severe hypercalcemia, 15.1, with low normal PTH. Likely from malignancy. PTH RP pending. Calcium is 10.5 on April 29 Status: Acute (2) Intractable nausea and vomiting: Problem comment: Improving with Reglan therapy. Continue to monitor. If tolerating oral food and fluid can be discharged for outpatient follow-up Status: Acute (3) Lymphadenopathy, retroperitoneal: Problem comment: Likely malignant, possibly lymphoma. Needs tissue diagnosis and Oncology follow-up Status: Acute (4) ALEXANDER (acute kidney injury): Problem comment: Patient's creatinine back in December 2024 was 1.2. Creatinine at presentation is 1.7. Now stabilized at 1.5 Status: Acute (5) Malnutrition: Problem comment: 8.6 kg or 19 lbs of weight loss/20% of body weight in the past 3 months. Appears primarily due to poor appetite and poor oral intake which is likely due to malignancy and hypercalcemia Status: Acute (6) History of coronary artery disease: Problem comment: NSTEMI (non-ST elevated myocardial infarction) 03/12/2021 ANITHA to LAD, Cx. Patient is not taking her aspirin, she states that she does not know about it. Ordered aspirin 81 mg daily Status: Acute (7) Constipation: Problem comment: Likely due to poor oral intake. Continue laxatives Status: Acute (8) Delirium: Problem comment: On April 27 patient appeared to have hospital delirium. Now appears resolved. Status: Acute (9) Cognitive impairment: Problem comment: Coleman 13/30 on 04/28/2025 Status: Acute Plan Continue in-hospital to establish that she can manage her own nutrition and hydration for outpatient follow-up of her suspected malignancy. Total Time Spent Total Time Spent: Total time spent today is 40 minutes in coordination of care and discussing with patient and other providers ongoing management of above medical problems Subjective Date Seen: 04/29/25 Interval history: 85-year-old female admitted to the hospital for hypercalcemia. Patient is confused and disoriented this morning and gives limited history.. History is obtained from the medical record and then from her brother, Ricky, who this with her. Her brother indicates that she has had a recent decline with weight loss and poor appetite over the last few weeks. He is most concerned that she has not had a bowel movement in 10 days. He otherwise reports things are going well for her. She may be getting weaker and she uses the miller and furniture to steady herself when she is walking. She reports no appetite. She does report some vague abdominal pain. She is uncertain about her constipation. She reports no dyspnea. No urinary symptoms. Nursing staff report that she has had some nausea and has been eating very little. In reviewing medical records I see that her weight has been stable until January 032024 when her weight was 53.1 kg in the clinic. Two days ago on April 25 her weight was 44.5 kg, down 8.6 kg or 19 lb since December. Her brother thinks most of that weight loss has been more recent. Her calcium level in December was normal. She has a history of coronary artery disease but has had no symptoms chest pain or dyspnea. She had coronary artery angiogram with stenting of the mid LAD and proximal circumflex. Echocardiogram at that time was showing an ejection fraction of 66% no significant valvular disease and moderate LV diastolic dysfunction. Initial laboratory evaluations showed a calcium of 15.1 with an ionized calcium of 1.84. Phosphorus 2.6, creatinine of 1.7. (Creatinine in 2021 was 0.87.) CT chest, abdomen and pelvis showed prominent retroperitoneal lymphadenopathy. Solid tumor suspected. Subsequent IV contrast with CT abdomen and pelvis suggest this is more likely lymphoma. Radiologist thinks there may be lesions near the kidney that would be assessable percutaneously but this would need to be done at [facility]. 04/27/2025: Patient is confused. Not oriented to circumstances or place. Gives limited history. Mildly restless and anxious to go home. Reports no appetite and is resisting eating and drinking. She has received calcitonin, normal saline and Zometa and calcium is improved to 11.4 and creatinine is improved to 1.4. 04/28/2025: She is seen with her son today. She seems more oriented to her circumstances and able to carry on a conversation. She verbalizes frustration with her very poor appetite. She also notes that when she does eat and drink will have an emesis shortly after eating and drinking. Emesis is nonbloody. She had couple bowel movements yesterday. She is reporting not having significant abdominal pain even when she has an emesis. 04/29/2025: Patient reports feeling better today. She is tolerating p.o. food and fluid better. Per nurse's notes intake is still marginal. She has had no further vomiting. Tolerating the Reglan fairly well. Exam Narrative: Exam Narrative: She is alert and appears in no distress. She is more oriented and able to give her own history of recent events today. Cardiovascular: S1, S2, 1/6 systolic murmur. Respirations are clear to auscultation. Abdomen is soft with minimal tenderness and no mass. No edema. Const: Vital Signs, click to edit/add: Vital Signs - 24 hr 04/28/25 15:05 04/28/25 15:05 04/28/25 15:05 Temperature 99.5 F Pulse Rate Pulse Rate [Pulse Oximeter] 66 66 Respiratory Rate 18 18 Blood Pressure [Ri ght Arm] 156/78 H Pulse Oximetry 97 97 Oxygen Delivery Me thod Room Air 04/28/25 15:35 04/28/25 19:30 04/28/25 21:38 Temperature 99.3 F Pulse Rate 68 71 Pulse Rate [Pulse Oximeter] 73 Respiratory Rate 16 Blood Pressure [Ri ght Arm] 151/93 H Pulse Oximetry 97 Oxygen Delivery Me thod Room Air 04/28/25 22:18 04/28/25 22:18 04/28/25 22:20 Temperature 99.3 F Pulse Rate Pulse Rate [Pulse Oximeter] 83 Respiratory Rate 16 16 Blood Pressure [Ri ght Arm] 159/93 H Pulse Oximetry 94 94 Oxygen Delivery Me thod Room Air 04/29/25 02:55 04/29/25 08:31 04/29/25 08:31 Temperature 99.7 F H 98.9 F Pulse Rate Pulse Rate [Pulse Oximeter] 74 75 Respiratory Rate 18 20 Blood Pressure [Ri ght Arm] 167/101 H 172/83 H Pulse Oximetry 95 96 96 Oxygen Delivery Me thod Room Air Room Air 04/29/25 08:31 04/29/25 11:11 Temperature 98.3 F Pulse Rate Pulse Rate [Pulse Oximeter] 75 72 Respiratory Rate 20 20 Blood Pressure [Ri ght Arm] 160/79 H Pulse Oximetry 96 Oxygen Delivery Me thod Room Air Documenting provider has reviewed patient's vital signs: yes Labs Labs: Laboratory Results - last 24 hr 04/29/25 07:15 Sodium 138 Potassium 3.2 L Chloride 106 Carbon Dioxide 25 Anion Gap 7 BUN 26 Creatinine 1.5 Estimated Creat Clear 20.81 Estimated GFR 34 Glucose 98 Calcium 10.5
--- NOTE | 2025-04-29 18:34 | PC.NURSE ---
End of Shift: Patient pleasant and oriented today, but intermittently confused. Patient is vitally stable, lungs clear, BS WNL, IV SL and intact. Patient denies nausea and pain. Patient SBA to toilet. Patient urinating well and had a BM. Patient does not have much of an appetite but has consumed more than yesterday. Patient has taken in a good amount of fluids, ate some hot cereal for breakfast, snacked on a yogurt throughout the day, and had some bites of mashed potatoes for dinner. Patient reports getting full quickly. Patient has been up in chair majority of day.
[2025-04-29] MEDS: ENOXAPARIN 30 MG/0.3ML INJ SUBCUT (21:01)
[2025-04-30 02:50] VITALS: BP 165/91; PULSE 73; RESP 18; TEMP 37.6; O2SAT 92
--- NOTE | 2025-04-30 06:09 | PC.NURSE ---
This is my second night with the patient. Their mentation overnight was improved over last night. Some confusion and disorientation but they were very easy to reorient. Vitally they have remained hypertensive. A blood pressure reading of 165/91 was found at 0250. Stable gait with a walker. Somewhat shaky without. No major developments overnight. Awaiting an MRI today. ?
[2025-04-30 06:43] LABS: Chloride* 102 mmol/L (96-114); Potassium* 3.4 mmol/L (3.6-5.1); Sodium* 134 mmol/L (135-149)
[2025-04-30 06:46] LABS: Blood Urea Nitrogen* 27 mg/dL (7-30); Creatinine* 1.4 mg/dL (0.5-1.5); Est. Creatinine Clearance* 20.89; Estimated Glomerular Filt Rate 37 ml/min
[2025-04-30 06:47] LABS: Anion Gap 5 mEq/L (7-15); Calcium* 10.2 mg/dL (8.4-10.6); Carbon Dioxide* 27 mmol/L (20-32); Glucose* 93 mg/dL (60-115)
[2025-04-30] MEDS: METOCLOPRAMIDE 10 MG TABLET PO ×2 (08:15→12:30)
[2025-04-30] MEDS: ASPIRIN 81 MG TAB.CHEW PO (08:51)
[2025-04-30] MEDS: SENNOSIDES 1 TAB TABLET 2 TAB PO (08:51)
[2025-04-30] MEDS: POTASSIUM CHLORIDE 10 MEQ CAPSULE ER 20 MEQ PO (08:52)
[2025-04-30] MEDS: SODIUM CHLORIDE 0.9 % (FLUSH) 10 ML SYRINGE 5 ML IVF (08:52)
[2025-04-30 10:02] VITALS: O2SAT 91
[2025-04-30 10:05] VITALS: BP 170/97; PULSE 83; RESP 16; TEMP 36.9; O2SAT 91
--- NOTE | 2025-04-30 12:08 | PM.DS1 ---
DS: Providers Provider Date Seen: 04/30/25 Date of admission: 04/26/25 14:30 Primary care physician: Johanna Velasco MD Admitting Clinician: Augie Lucero MD Attending Physician on discharge: En Armendariz MD Date of Discharge: 04/30/25 DS: Diagnosis Discharge Diagnosis (1) Hypercalcemia: Status: Acute Problem details: Severe hypercalcemia, 15.1, with low normal PTH. Likely from malignancy. PTH RP pending. Calcium is 10.2 at discharge (2) Intractable nausea and vomiting: Status: Acute Problem details: Improving with Reglan therapy. Reassess metoclopramide therapy as outpatient. Consider reducing dose to minimize side effects if possible (3) Lymphadenopathy, retroperitoneal: Status: Acute Problem details: Likely malignant, possibly lymphoma. Needs tissue diagnosis and Oncology follow-up. Interventional radiology at [facility] will arrange for outpatient procedure (4) ALEXANDER (acute kidney injury): Status: Acute Problem details: Patient's creatinine back in December 2024 was 1.2. Creatinine at presentation is 1.7. Now stabilized at 1.5 (5) Malnutrition: Status: Acute Problem details: 8.6 kg or 19 lbs of weight loss/20% of body weight in the past 3 months. Appears primarily due to poor appetite and poor oral intake which is likely due to malignancy and hypercalcemia. Nausea vomiting and appetite are improved with treatment of hypercalcemia. (6) History of coronary artery disease: Status: Acute Problem details: NSTEMI (non-ST elevated myocardial infarction) 03/12/2021 ANITHA to LAD, Cx. Consider aspirin and statin depending on clinical course and prognosis. (7) Constipation: Status: Acute Problem details: Likely due to poor oral intake. Continue laxatives (8) Delirium: Status: Acute Problem details: On April 27 patient appeared to have hospital delirium. Resolved (9) Cognitive impairment: Status: Acute Problem details: Wilkes 13/30 on 04/28/2025. Likely a combination of underlying dementia plus metabolic encephalopathy with hypercalcemia. Improving (10) Tremor: Status: Acute Problem details: I favor physiologic tremor over essential tremor. Patient did have some improvement with propranolol. Reassess need for propranolol over time. (11) Hypokalemia: Status: Acute Problem details: Likely due to poor oral intake. On potassium replacement. Follow up outpatient lab test in 1 week. (12) Preop general physical exam: Status: Acute Problem details: The patient needed a preop assessment for outpatient interventional radiology procedure with moderate sedation. She has had evaluation during this hospital stay that has adequately assessed her risks. This includes overall health assessment, review of systems, risk for sedation and anesthesia, procedural risks. Her multiple medical problems are optimized for the procedure of percutaneous biopsy under moderate sedation. DS: Summary Hospital Course Hospital Course: 85-year-old female admitted to the hospital for hypercalcemia. Patient is confused and disoriented this morning and gives limited history.. History is obtained from the medical record and then from her brother, Ricky, who this with her. Her brother indicates that she has had a recent decline with weight loss and poor appetite over the last few weeks. He is most concerned that she has not had a bowel movement in 10 days. He otherwise reports things are going well for her. She may be getting weaker and she uses the miller and furniture to steady herself when she is walking. She reports no appetite. She does report some vague abdominal pain. She is uncertain about her constipation. She reports no dyspnea. No urinary symptoms. Nursing staff report that she has had some nausea and has been eating very little. In reviewing medical records I see that her weight has been stable until January 032024 when her weight was 53.1 kg in the clinic. Two days ago on April 25 her weight was 44.5 kg, down 8.6 kg or 19 lb since December. Her brother thinks most of that weight loss has been more recent. Her calcium level in December was normal. She has a history of coronary artery disease but has had no symptoms chest pain or dyspnea. She had coronary artery angiogram with stenting of the mid LAD and proximal circumflex. Echocardiogram at that time was showing an ejection fraction of 66% no significant valvular disease and moderate LV diastolic dysfunction. Initial laboratory evaluations showed a calcium of 15.1 with an ionized calcium of 1.84. Phosphorus 2.6, creatinine of 1.7. (Creatinine in 2021 was 0.87.) CT chest, abdomen and pelvis showed prominent retroperitoneal lymphadenopathy. Solid tumor suspected. Subsequent IV contrast with CT abdomen and pelvis suggest this is more likely lymphoma. Radiologist thinks there may be lesions near the kidney that would be assessable percutaneously but this would need to be done at [facility]. 04/27/2025: Patient is confused. Not oriented to circumstances or place. Gives limited history. Mildly restless and anxious to go home. Reports no appetite and is resisting eating and drinking. She has received calcitonin, normal saline and Zometa and calcium is improved to 11.4 and creatinine is improved to 1.4. 04/28/2025: She is seen with her son today. She seems more oriented to her circumstances and able to carry on a conversation. She verbalizes frustration with her very poor appetite. She also notes that when she does eat and drink will have an emesis shortly after eating and drinking. Emesis is nonbloody. She had couple bowel movements yesterday. She is reporting not having significant abdominal pain even when she has an emesis. 04/29/2025: Patient reports feeling better today. She is tolerating p.o. food and fluid better. Per nurse's notes intake is still marginal. She has had no further vomiting. Tolerating the Reglan fairly well. 04/30/2025: Patient continues to report feeling better. She is tolerating food and fluid though still reports a poor appetite. She denies nausea or vomiting. She has no other health concerns today. ARRANGEMENTS ARE BEING MADE FOR HER TO GO TO [facility] INTERVENTIONAL RADIOLOGY AN OUTPATIENT FOR A PERCUTANEOUS BIOPSY OF HER ABDOMINAL MASS. THEY WILL CONTACT HER SON, TWIN, FOR THE TIME OF THE PROCEDURE. SHE HAS HAD APPROPRIATE PREOPERATIVE EVALUATION PERFORMED DURING THIS HOSPITAL STAY. HER MEDICAL PROBLEMS ARE CURRENTLY OPTIMIZED FOR HER TO UNDERGO THIS PROCEDURE WITH MODERATE SEDATION. Status at Discharge Functional status at discharge: uses cane/walker Overall status at discharge: patient is progressing back to baseline Time Spent with Patient Time attestation: Total time spent providing and/or coordinating discharge services: 50 MINUTES Exam Narrative: Exam Narrative: She is alert and appears in no distress. She is oriented to her circumstances and can carry on a conversation fairly well today. Respirations are clear to auscultation. Cardiovascular: S1, S2, 1/6 systolic murmur. No gallop or rub. No significant fine tremor noted today Const: Vital Signs, click to edit/add: Vital Signs - 24 hr 04/29/25 15:30 04/29/25 15:30 04/29/25 15:30 Temperature 97.5 F L Pulse Rate [Bilate ral Dorsalis Pedis ] Pulse Rate [Pulse Oximeter] 69 69 Respiratory Rate 18 18 Blood Pressure [Le ft Arm] Blood Pressure [Ri ght Arm] 162/81 H Pulse Oximetry 97 97 Oxygen Delivery Me thod Room Air 04/29/25 19:20 04/29/25 22:32 04/29/25 22:33 Temperature 99.4 F 99.4 F Pulse Rate [Bilate ral Dorsalis Pedis ] 70 Pulse Rate [Pulse Oximeter] 91 Respiratory Rate 16 18 Blood Pressure [Le ft Arm] Blood Pressure [Ri ght Arm] 173/99 H 157/87 H Pulse Oximetry 91 93 93 Oxygen Delivery Me thod Room Air Room Air 04/30/25 02:50 04/30/25 10:02 04/30/25 10:05 Temperature 99.7 F H 98.5 F Pulse Rate [Bilate ral Dorsalis Pedis ] Pulse Rate [Pulse Oximeter] 73 83 Respiratory Rate 18 16 Blood Pressure [Le ft Arm] 170/97 H Blood Pressure [Ri ght Arm] 165/91 H Pulse Oximetry 92 91 91 Oxygen Delivery Me thod Room Air Room Air DS: Data Data Completed and Pending Completed studies during hospitalization: Electrocardiogram on 04/26/2025 shows normal sinus rhythm and minimal nonspecific T-wave changes, T-wave inversions in V1 V2 and flattened T-waves in aVL. No acute ST-T changes. Labs on day of discharge: Labs from last 24 hours 04/30/25 04/30/25 04/27/25 07:34 05:54 09:43 Sodium 134 L Potassium 3.4 L Chloride 102 Carbon Dioxide 27 Anion Gap 5 L BUN 27 Creatinine 1.4 Estimated Creat Clear 20.89 Estimated GFR 37 Glucose 93 Calcium 10.2 Magnesium 1.9 PTH Related Peptide Cancelled Lab Acknowledgement Test Added Imaging CT Chest/Ab/Pelvis: Radiologist's impression: Indication: FALL 04/23/25, HYPERCALCEMIA WITH SIGNIFICANT WT LOSS Technique: CT of the chest, abdomen, and pelvis was obtained without intravenous contrast. Please note that all CT scans at this facility use dose modulation, iterative reconstruction, and/or weight-based dosing when appropriate to reduce radiation dose to as low as reasonably achievable. Comparison: None. Findings: CHEST: Medical devices: None. Thyroid: Normal. Lymph nodes: Limited evaluation without IV contrast. No supraclavicular, axillary, mediastinal, or hilar lymphadenopathy. Vasculature: Limited evaluation without IV contrast. Aorta and main pulmonary artery diameters are within normal range. Mild aortic calcification. Heart: Moderate coronary artery calcification. Trace pericardial effusion. Other mediastinal structures: Normal noncontrast appearance. Lung parenchyma and pleura: Moderate biapical pleural-parenchymal scarring. Airways: No significant abnormality. Chest wall: No significant abnormality. ABDOMEN/PELVIS: Liver and biliary tree: Subcentimeter hypoattenuating lesions are too small to characterize and favored to represent cysts. Calcified granuloma. Gallbladder: Normal Spleen: Normal noncontrast appearance. Pancreas: Mild fatty atrophy. Adrenal glands: Normal noncontrast appearance. Kidneys and ureters: Atrophic right kidney. 4.9 centimeter right renal cyst (4/121). No hydronephrosis or obstructing renal calculi. Gastrointestinal tract: Mild sigmoid diverticulosis without CT evidence of acute diverticulitis. Moderate stool burden is seen throughout the colon. No evidence of acute appendicitis. No evidence of bowel obstruction. Peritoneal cavity: Normal Bladder: Normal Pelvic organs: Status post hysterectomy. Vasculature: Moderate calcification. Lymph nodes: Suboptimally evaluated in the absence of intravenous contrast. Retroperitoneal lymphadenopathy measuring up to 3.3 x 2.5 centimeter in the left iliac region (4/149). Ill-defined mass in the upper retroperitoneum measuring roughly 5.1 x 4.1 centimeter (4/100). Abdominal wall: Normal Musculoskeletal: Moderate degenerative changes of the visualized spine and bilateral hips. Impression: 1. Retroperitoneal lymphadenopathy, which is suboptimally evaluated in the absence of intravenous contrast. Findings are concerning for malignancy. Consider contrast-enhanced examination for further evaluation. 2. Trace pericardial effusion. 3. No acute intrathoracic or intra-abdominal injury is seen. Discharge Plan Discharge Disposition: Home, Self-Care Date of Admission: 04/26/25 14:30 Attending Provider on Discharge: Yousuf Armendariz Primary Care Provider: Johanna Velasco Condition: Improved Anticipated Discharge Date/Time: 04/30/25 12:37 Discharge Medications: New sennosides [Senna Lax] 8.6 mg Tablet 17.2 mg PO DAILY Qty: 60 0RF acetaminophen 325 mg Tablet 650 mg PO Q6H PRN (Reason: As needed for fever, headache, or minor pain) Qty: 100 0RF propranolol 60 mg Capsule,Extended Release 24 Hr 60 mg PO DAILY Qty: 30 0RF melatonin 3 mg Tablet 3 mg PO HS PRN (Reason: Insomnia) Qty: 30 0RF metoclopramide HCl 10 mg Tablet 10 mg PO TID@0730,1130,1730 PRN (Reason: Nausea) Qty: 90 0RF potassium chloride 10 mEq tablet extended release 10 meq PO DAILY Qty: 30 2RF Continued lisinopril 10 mg tablet 10 mg PO DAILY Discharge Orders: Discharge Order (Routine); Ordered 04/30/25 Ordered By: Yousuf Armendariz Additional Instructions: Interventional radiology at [facility] will contact you for outpatient appointment to have a biopsy of your abdominal mass. Activity Level: Activity as Tolerated Discharge Diet: Regular Follow Up Appointments: Johanna Velasco MD [Primary Care Provider, Family Practice] Referral Note: Follow-up with Dr. Velasco in 1 week. Check basic metabolic panel in 1 week. Forms: Patient Belongings, MyHealth Info Instructions
[2025-04-30 12:42] VITALS: BP 118/77; PULSE 66; RESP 16; TEMP 36.9; O2SAT 93
--- NOTE | 2025-04-30 13:16 | NUTR.NU ---
RDN with verbal notification from manager social media that patient's son is interested in nutrition education for patient. Plan is for patient to discharge to home with son helping at this time. Nutrition education was provided to patient's son on high protein, high calorie diet related to weight loss and low BMI. Discussed foods that are high in calories and protein, as well as the use of nutrition supplements such as Ensure Enlive and Boost to help meet daily energy needs. Also discussed frequent small meals (5-6x/day) may be more easily managed instead of 3 big meals daily. Handout reviewed and provided to patient's son from [facility] on High-Calorie, High-Protein diet. Patient's son verbalized understanding. RDN's contact information was provided and patient and her son were encouraged to contact RDN with questions.
--- NOTE | 2025-04-30 15:23 | PC.NURSE ---
Discharge - Pt alert, oriented, cooperative. Up with standby assistance. Tolerating RA and regular diet, denies pain and SOB. Pt continent of bowel and bladder. IV removed with catheter intact. D/C education provided to pt and family member. Both verbalized understanding of teaching by RN. Pt d/c to home with son via wheelchair at approximately 1500.
--- NOTE | 2025-05-28 15:16 | PC.NURSE ---
Call received from patient and accessed chart with permission, patient was looking for dates of service and who referral for discharge when to.
== END 2025-04-30 15:00 | disposition home or self-care (01) | DRG 640 ==
LOC: ED 13:51 → MEDSURG 14:29
PROVIDERS: Family Medicine; Admitting Provider Student in an Organized Health Care Education/Training Program; Emergency Provider Family Medicine; PCP Family Medicine; Visit Provider Internal Medicine
DX: E83.52 Hypercalcemia (principal); E43 Unspecified severe protein-calorie malnutrition; Z68.1 Body mass index [BMI] 19.9 or less, adult; F05 Delirium due to known physiological condition; T76.91XA Unspecified adult maltreatment, suspected, initial encounter; N17.9 Acute kidney failure, unspecified; C76.2 Malignant neoplasm of abdomen; Z63.8 Other specified problems related to primary support group; G31.84 Mild cognitive impairment of uncertain or unknown etiology; E87.6 Hypokalemia; R11.2 Nausea with vomiting, unspecified; R25.1 Tremor, unspecified; R63.4 Abnormal weight loss; R59.0 Localized enlarged lymph nodes; K59.00 Constipation, unspecified; R26.2 Difficulty in walking, not elsewhere classified; I25.10 Atherosclerotic heart disease of native coronary artery without angina pectoris; I25.2 Old myocardial infarction
CPT/HCPCS: 36415; 70450; 71250; 72125; 74176; 74177; 80048; 80053; 81001; 82306; 82310; 82330; 82397; 83605; 83735; 83970; 84100; 84443; 85025; 85651; 87086; 93005; 97110; 97116; 97161; 97165; 97530; 97535; 99285; A9270; J0630; J1650; J1938; J2405; J2765; J3489; J7030; Q9967

== ENCOUNTER 2025-05-30 15:15 | Inpatient (IN) | payer OTHER, SELFPAY ==
[2025-05-30] VITALS (9 sets, daily range): BP systolic 120–204; BP diastolic 72–119; PULSE 64–68; RESP 16–18; TEMP 36.5–36.8; O2SAT 96–99; BMI 16.5
[2025-05-30 16:49] LABS: Ionized Calcium* 1.81 mmol/L (1.11-1.30)
[2025-05-30 16:51] LABS: Hematocrit* 40.6 % (33.0-51.0); Hemoglobin* 12.9 gm/dL (12.0-16.0); Immature Granulocytes Abs Auto 0.03 K/uL (0.00-0.30); Immature Granulocytes Pct Auto 0.5 %; Mean Corpuscular HGB Conc 32 gm/dL (32-36); Mean Corpuscular Hemoglobin 28 pg (26-34); Mean Corpuscular Volume 87 fL (80-100); RDW Coefficient of Variation % 14.4 % (11.5-15.5); Red Blood Count* 4.65 m/uL (4.00-5.20); White Blood Count* 6.22 K/uL (4.50-11.00)
[2025-05-30 16:53] LABS: Lymphocytes Absolute Auto 1.00 K/uL (0.90-2.90); Slide Review Reflex No
[2025-05-30 16:55] LABS: Lactate* 2.1 mmol/L (0.5-1.9)
[2025-05-30 17:08] LABS: Albumin* 4.0 g/dL (3.3-5.0); Chloride* 99 mmol/L (96-114); Potassium* 4.0 mmol/L (3.6-5.1); Sodium* 134 mmol/L (135-149)
[2025-05-30 17:10] LABS: Blood Urea Nitrogen* 26 mg/dL (7-30); Creatinine* 1.8 mg/dL (0.5-1.5); Estimated Glomerular Filt Rate 27 ml/min
[2025-05-30 17:11] LABS: Alanine Aminotransferase* 15 U/L (4-35); Alkaline Phosphatase* 62 U/L (40-150); Anion Gap 8 mEq/L (7-15); Aspartate Amino Transferase* 29 U/L (12-35); Bilirubin Direct* 0.2 mg/dL (0.0-0.5); Bilirubin Total* 0.5 mg/dL (0.1-1.5); Carbon Dioxide* 27 mmol/L (20-32); Glucose* 121 mg/dL (60-115)
--- NOTE | 2025-05-30 17:36 | ED_ITS ---
HPI - General Adult General Time Seen by Provider: 17:36 Date Seen: 05/30/25 Chief complaint: Unspecified Complaint, Adult Stated complaint: Lymphoma Time Seen by Provider: 05/30/25 17:00 Source: patient and RN notes reviewed Mode of arrival: ambulatory Limitations: no limitations History of Present Illness HPI narrative: This 85-year-old female is coming in with concern for hypercalcemia again. She has diminished appetite, she feels off balance, memory issues. She has been a little unsteady with walking. All of these symptoms were reminiscent when she had hypercalcemia on her last hospitalization, she was here 4 days. Her son and the patient herself note the symptoms did improve, started to return. She has been tired to, basically went to bed early, slept all night. There is fatigue with this. They are working her up for lymphoma, had her biopsy almost 2 weeks ago, they did order more testing but they do not know the results. She has had a little low back pain, across her low back. Patient had a CT-guided biopsy on May 16, results are still in pending. She has no chest pain, no abdominal pain at this time. Her appetite has been diminished but no nausea vomiting or diarrhea. No cough. She does not believe she has had any fevers or night sweats. Related Data Home Medications ?Medication ?Instructions ?Recorded ?Confirmed lisinopril 10 mg tablet 10 mg PO DAILY 02/11/25 0912/15 Previous Rx's ?Medication ?Instructions ?Recorded acetaminophen 325 mg tablet 650 mg (2 x 325 mg) PO Q6H PRN As 04/30/25 needed for fever, headache, or minor pain #100 tabs melatonin 3 mg tablet 3 mg PO HS PRN Insomnia #30 tabs 04/30/25 metoclopramide HCl 10 mg tablet 10 mg PO TID@0730,1130 ,1730 PRN 04/30/25 Nausea #90 tabs potassium chloride 10 mEq 10 meq PO DAILY #30 tabs 04/16 tablet,extended release propranolol 60 mg capsule,24 60 mg PO DAILY #30 caps 0 04/30/25 hr,extended release sennosides 8.6 mg tablet (Senna 17.2 mg (2 x 8.6 mg) P O DAILY #60 04/30/25 Lax) tabs Allergies Allergy/AdvReac Type Severity Reaction Status Date / Time procaine (From Novocain) Allergy Severe Verified 04/27/25 10:04 Penicillins AdvReac Verified 04/27/25 10:04 Review of Systems Status of ROS: Reports: 6 or more systems reviewed and unremarkable except as noted in History and below [facility] Medical History Hypertension ?I10 - Essential (primary) hypertension (ICD-10) Renal insufficiency ?N28.9 - Disorder of kidney and ureter, unspecified (ICD-10) Tremor ?R25.1 - Tremor, unspecified (ICD-10) Cognitive impairment ?R41.89 - Other symptoms and signs involving cognitive functions and awareness (ICD-10) History of coronary artery disease ?Z86.79 - Personal history of other diseases of the circulatory system (ICD- 10) Social History What is your current living situation?: I presently have a place to live Problems where you live: no known problems Problems where you live details: N/A In the past 12 months, utilities in danger of being shut off: no In past 12 months, lack of transportation kept you from medical appts, meetings, work, or getting things needed for daily living: no In the past 12 mos, have been you worried that your food would run out before you had money to buy more?: never true In the past 12 mos, the food you bought just didn't last and you didn't have money to buy more?: never true Highest level of school completed/degree received: Master's degree Smoking Status: Never smoker Second hand tobacco smoke exposure: No How often do you have a drink containing alcohol: monthly or less How often do you have six or more drinks on one occasion: Never AUDIT-C Alcohol total score: 1 Non-prescribed substance use: denies use Caffeine: Yes How often does anyone, including family, friends and others, physically hurt you : never How often does anyone, including family, friends and others, insult or talk down to you: never How often does anyone, including family, friends and others, threaten you with harm: never How often does anyone, including family, friends and others, scream or curse at you: never service: No Exam Const: Vital Signs, click to edit/add: Vital Signs - 24 hr 05/30/25 16:10 05/30/25 17:38 05/30/25 17:45 Temperature 98.2 F Pulse Rate 64 67 Pulse Rate [Pulse Oximeter] 68 Respiratory Rate 18 Blood Pressure 159/80 H Blood Pressure [Ri ght Upper Arm] 120/72 Pulse Oximetry 96 98 99 Oxygen Delivery Me thod Room Air 05/30/25 18:00 05/30/25 18:15 05/30/25 18:45 Temperature Pulse Rate 65 66 Pulse Rate [Pulse Oximeter] Respiratory Rate 16 Blood Pressure Blood Pressure [Ri ght Upper Arm] Pulse Oximetry 99 98 Oxygen Delivery Me thod This 85-year-old female is alert, interactive, no apparent distress. She is frail, thin stature but breathing easy on room air, no distress. Her speech is normal. Pupils equal round reactive, sclera clear, skin looks pale but no rash or petechiae noted, no significant bruising. Neck slender. Lungs are clear, no wheezing, no crackles, no tachypnea, no accessory muscle use. CV regular rate and rhythm, no murmur, normal S1-S2. Abdomen is soft, nontender, nondistended, do not feel any organomegaly. She has no lower extremity edema. Documenting provider has reviewed patient's vital signs: yes Course Course ED Course: Due to the volume and acuity in the ED, patient did wait in the lobby for while. They had requested labs to be drawn, I reviewed her chart and did order labs while she was waiting. Her ionized calcium did come back elevated at 1.81. When I did see that, asked staff to bring her back as soon as we had availability of a room. Ordered IV start with normal saline, EKG and cardiac monitoring. She is going to need hospitalization again. I did look up her pathology results and they are still pending. Reevaluation(s) Time of Reevaluation #1: 18:17 Reevaluation #1: Lab needs more specimen for further dilution of a calcium, they are going to have to come and redraw this patient. Thus, her overall calcium maybe slightly diminished as she has started IV fluids, anticipate it will still overall be elevated however. Consultations Consultation #1: Has spoke with the hospitalist Kristin Bautista. She will accept this patient. She is aware that the calcium is greater than 14, lab is working on titrating this. Her ionized calcium was 1.81, similar to the level she was admitted last time. I believe her admitting calcium level was in the 15 range last time. We have initiated IV fluids here, she will take over management. Time: 18:03 Vital Signs Vital signs: Initial Vital Signs Temperature 98.2 F 05/30/25 16:10 Temperature Source Temporal Artery Scan 05/30/25 16:10 Pulse Rate 68 05/30/25 16:10 Respiratory Rate 18 05/30/25 16:10 Blood Pressure 120/72 05/30/25 16:10 Blood Pressure Mean 88 05/30/25 16:10 Pulse Oximetry 96 05/30/25 16:10 Oxygen Delivery Method Room Air 05/30/25 16:10 Vital Signs Temperature 98.2 F 05/30/25 16:10 Pulse Rate 68 05/30/25 16:10 Respiratory Rate 18 05/30/25 16:10 Blood Pressure 120/72 05/30/25 16:10 Pulse Oximetry 96 05/30/25 16:10 Oxygen Delivery Method Room Air 05/30/25 16:10 Temperature 97.7 F 05/30/25 19:23 Pulse Rate 67 05/30/25 19:23 Respiratory Rate 16 05/30/25 19:23 Blood Pressure 165/88 H 05/30/25 19:23 Pulse Oximetry 97 05/30/25 19:23 Oxygen Delivery Method Room Air 05/30/25 20:04 Medications Administered Medications: Generic Name Dose Route Start Last Admin Trade Name Freq PRN Reason Stop Dose Admin Enoxaparin Sodium 30 mg 05/30/25 20:29 05/30/25 20:56 Enoxaparin 30 Mg/0.3ml Inj SUBCUT 30 mg Q24H JUDY Administration Sodium Chloride 1,000 mls @ 250 mls/hr 05/30/25 20:29 05/30/25 20:55 0.9 % Sodium Chloride 1000 Ml IV 05/31/25 00:28 250 mls/hr .Q4H JUDY Administration Sodium Chloride 5 ml 05/30/25 21:00 05/30/25 20:56 Sodium Chloride 0.9 % (Flush) 10 Ml Syringe IVF 5 ml BID JUDY Administration Discontinued Medications Generic Name Dose Route Start Last Admin Trade Name Freq PRN Reason Stop Dose Admin Calcitonin [place] 200 unit 05/30/25 20:29 05/30/25 21:00 Calcitonin,[place],Synthetic 200 Unit/Ml Inj SUBCUT 05/30/25 20:30 200 unit ONCE ONE Administration Sodium Chloride 1,000 mls @ 500 mls/hr 05/30/25 17:00 05/30/25 19:54 0.9 % Sodium Chloride 1000 Ml IV 05/30/25 18:59 Infused .Q2H JUDY Infusion Medical Decision Making Lab Data Lab results reviewed: Yes I reviewed the patient's lab results Labs: Lab Results 05/30/25 Range/Units 16:40 WBC 6.22 (4.50-11.00) K/uL RBC 4.65 (4.00-5.20) m/uL Hgb 12.9 (12.0-16.0) gm/dL Hct 40.6 (33.0-51.0) % MCV 87 (80-100) fL MCH 28 (26-34) pg MCHC 32 (32-36) gm/dL RDW Coeff of Diane 14.4 (11.5-15.5) % Plt Count 348 (140-440) K/uL Neut % (Auto) 71.5 (42.0-72.0) % Lymph % (Auto) 16.2 L (20-44) % Keith % (Auto) 10.6 (0.0-11.0) % Eos % (Auto) 1.0 (0.0-7.0) % Baso % (Auto) 0.2 (0.0-3.0) % Neut # (Auto) 4.45 (1.7-7.0) K/uL Lymph # (Auto) 1.00 (0.90-2.90) K/uL Keith # (Auto) 0.70 (0.00-0.90) K/UL Eos # (Auto) 0.06 (0.00-0.50) K/uL Baso # (Auto) 0.01 (0.00-0.30) K/uL Abs Immat Gran (auto) 0.03 (0.00-0.30) K/uL Imm/Tot Granulo (auto) 0.5 % Sodium 134 L (135-149) mmol/L Potassium 4.0 (3.6-5.1) mmol/L Chloride 99 (96-114) mmol/L Carbon Dioxide 27 (20-32) mmol/L Anion Gap 8 (7-15) mEq/L BUN 26 (7-30) mg/dL Creatinine 1.8 H (0.5-1.5) mg/dL Estimated GFR 27 ml/min Glucose 121 H (60-115) mg/dL Lactate 2.1 H (0.5-1.9) mmol/L Calcium 14.0 H* (8.4-10.6) mg/dL Ionized Calcium Cindy 1.81 H (1.11-1.30) mmol/L Phosphorus 4.1 (2.5-4.5) mg/dL Magnesium 2.4 (1.5-2.6) mg/dL Total Bilirubin 0.5 (0.1-1.5) mg/dL Direct Bilirubin 0.2 (0.0-0.5) mg/dL AST 29 (12-35) U/L ALT 15 (4-35) U/L Alkaline Phosphatase 62 (40-150) U/L C-Reactive Protein 2.0 H (0.5-1.0) mg/dL Total Protein 7.2 (6.0-8.3) g/dL Albumin 4.0 (3.3-5.0) g/dL ECG Data Attestation: I personally reviewed and interpreted this ECG as follows: (Normal sinus rhythm, 67 beats per minute. Flipped T-waves lead V1, flat in V2, no acute ST segment changes.) Prior ECG tracings: available for review Discharge Plan Discharge Clinical Impression: Hypercalcemia Patient Disposition: Admitted As Inpatient
[2025-05-30 17:56] LABS: Total Protein* 7.2 g/dL (6.0-8.3)
--- NOTE | 2025-05-30 18:05 | PM.IMHP1 ---
Assessment and Plan Assessment and plan (1) Hypercalcemia: Problem comment: - acute on chronic recurrent. Suspected in setting of malignancy currently in workup at [facility] - symptomatic poor appetite, unsteady gait, memory issues, fatigue - calcium reported as > 14 in ED, awaiting final result - ionized calcium 1.81, previously 1.84-1.40 - received 1 L NS in ED, will give 1 more L NS upon arrival to floor followed by maintenance fluids, monitoring for fluid overload, Lasix if needed - continue potassium supplement - calcitonin 200 mg SQ/IM on arrival to floor followed by repeat calcium check in 4-6 hours - further calcitonin dosing based on recheck - creatinine clearance estimated to be 16 so did not give zoledronic acid - discussed with scheduler conveyor pharmacist - vitamin-D, phosphorus levels ordered Status: Acute (2) Lymphadenopathy, retroperitoneal: Problem comment: - suspected malignant, possibly lymphoma - biopsy and cytogenetic tissue studies 05/16/[address] [facility], pending results yet Status: Acute (3) Renal insufficiency: Problem comment: - creatinine 1.8, has been 1.81-1.61 in the past month so not truly an ALEXANDER - receiving fluids for hypercalcemia - holding home lisinopril, avoid nephrotoxic medications, continue to monitor Status: Acute (4) Low back pain: Problem comment: - reported in ED, no imaging done. Will see if this improves with hydration and calcium management. Consider imaging if new or worsening symptoms or no improvement - symptomatic cares Status: Acute (5) Cognitive impairment: Problem comment: - [place] 13/30 on 04/28/2025 - at that time thought to be a combination of underlying dementia plus metabolic encephalopathy with hypercalcemia - monitor for acute delirium Status: Acute (6) Malnutrition: Problem comment: 9kg weight loss/20% of body weight in the past 4 months. Appears primarily due to poor appetite and poor oral intake which is likely due to malignancy and recurrent hypercalcemia. Status: Acute Total Time Spent Total Time Spent: Today I spent 75 minutes seeing the patient, reviewing Expanse and EPIC notes/diagnostics, discussing the care plan with our care time that includes social work, PT/OT, pharmacy, RT, mcfp and documenting my impressions and plan in the medical record. Hospitalist- H&P: HPI History of Present Illness Date Seen: 05/30/25 Chief complaint: Lymphoma Narrative: Darcy Garcia is a 85 year old female past medical history significant for hypertension, hyperlipidemia, history of NSTEMI, cognitive impairment, recent finding of hypercalcemia and retroperitoneal lymphadenopathy with concern for lymphoma ( currently in workup) is readmitted to the hospital from the ED with symptomatic hypercalcemia. Patient is seen with son at bedside. Reports return of decreased appetite, feeling unsteady while walking, worsening memory issues. The symptoms were present recently when she was found to be hypercalcemic. had improved following treatment but noticeably worsened again over the last couple of days. She reports increased fatigue. Sleeping more than normal. Has had some mild low back pain across her low back. Denies any chest pain, shortness of breath, palpitations. No recent fevers. Denies abdominal pain, nausea, vomiting or diarrhea. No recent cough or cold symptoms. Abdominal mass CT guided Biopsy 05/16/2025 with cytogenetics malignant tissue studies- pending PCP is Dr. Maggie Velasco. nonsmoker. rare alcohol use. Review of Systems Narrative: REVIEW OF SYSTEMS: Complete review of systems performed and negative unless otherwise stated in HPI or below. Medical Decision Making Medical Decision Making Code Status: Full code Has patient completed a Health Care Directive: No PFSH [facility], [facility] Medical History Hypertension ?I10 - Essential (primary) hypertension (ICD-10) Renal insufficiency ?N28.9 - Disorder of kidney and ureter, unspecified (ICD-10) Tremor ?R25.1 - Tremor, unspecified (ICD-10) Cognitive impairment ?R41.89 - Other symptoms and signs involving cognitive functions and awareness (ICD-10) History of coronary artery disease ?Z86.79 - Personal history of other diseases of the circulatory system (ICD-10) Social History What is your current living situation?: I presently have a place to live Problems where you live: no known problems Problems where you live details: N/A In the past 12 months, utilities in danger of being shut off: no In past 12 months, lack of transportation kept you from medical appts, meetings, work, or getting things needed for daily living: no In the past 12 mos, have been you worried that your food would run out before you had money to buy more?: never true In the past 12 mos, the food you bought just didn't last and you didn't have money to buy more?: never true Highest level of school completed/degree received: Master's degree Smoking Status: Never smoker Second hand tobacco smoke exposure: No How often do you have a drink containing alcohol: monthly or less How often do you have six or more drinks on one occasion: Never AUDIT-C Alcohol total score: 1 Non-prescribed substance use: denies use Caffeine: Yes How often does anyone, including family, friends and others, physically hurt you: never How often does anyone, including family, friends and others, insult or talk down to you: never How often does anyone, including family, friends and others, threaten you with harm: never How often does anyone, including family, friends and others, scream or curse at you: never service: No Meds Home Medications and Allergies Home Medications ?Medication ?Instructions ?Recorded ?Confirmed ?Type lisinopril 10 mg tablet 10 mg PO DAILY 02/11/25 04/26/25 History acetaminophen 325 mg tablet 650 mg (2 x 325 mg) PO Q6H PRN As 04/30/25 Rx needed for fever, headache, or minor pain #100 tabs melatonin 3 mg tablet 3 mg PO HS PRN Insomnia #30 tabs 04/30/25 Rx metoclopramide HCl 10 mg tablet 10 mg PO TID@0730,1130,1730 PRN 04/30/25 Rx Nausea #90 tabs potassium chloride 10 mEq 10 meq PO DAILY #30 tabs 04/30/25 Rx tablet,extended release propranolol 60 mg capsule,24 60 mg PO DAILY #30 caps 04/30/25 Rx hr,extended release sennosides 8.6 mg tablet (Senna 17.2 mg (2 x 8.6 mg) PO DAILY #60 04/30/25 Rx Lax) tabs Allergies Allergy/AdvReac Type Severity Reaction Status Date / Time procaine (From Novocain) Allergy Severe Verified 04/27/25 10:04 Penicillins AdvReac Verified 04/27/25 10:04 Exam Narrative: Exam Narrative: PHYSICAL EXAM General: Pleasant, conversant, NAD HEENT: Normocephalic, atraumatic, sclera white, EOMI, oral mucosa moist Cardiovascular: RRR, S1S2. No pitting edema Pulmonary: CTA bilaterally without rhonchi, rales, expiratory wheezes. No dyspnea Abdominal: Soft, nondistended, NTTP Neurological: Alert, answering questions appropriately, cranial nerves intact, no focal findings Extremities: No gross joint deformity or swelling. AROMI. Neurovascularly intact Skin: Warm, dry. Const: Vital Signs, click to edit/add: Vital Signs - 24 hr 05/30/25 16:10 05/30/25 17:38 Temperature 98.2 F Pulse Rate 64 Pulse Rate [Pulse Oximeter] 68 Respiratory Rate 18 Blood Pressure 159/80 H Blood Pressure [Ri ght Upper Arm] 120/72 Pulse Oximetry 96 98 Oxygen Delivery Me thod Room Air Hospitalist - H&P: Result Labs Labs: Short CBC 05/30/25 Range/Units 16:40 WBC 6.22 (4.50-11.00) K/uL Hgb 12.9 (12.0-16.0) gm/dL Hct 40.6 (33.0-51.0) % Plt Count 348 (140-440) K/uL BMP 05/30/25 16:40 Sodium 134 L Potassium 4.0 Chloride 99 Carbon Dioxide 27 BUN 26 Creatinine 1.8 H Glucose 121 H Calcium Liver Function 05/30/25 Range/Units 16:40 Total Bilirubin 0.5 (0.1-1.5) mg/dL Direct Bilirubin 0.2 (0.0-0.5) mg/dL AST 29 (12-35) U/L ALT 15 (4-35) U/L Alkaline Phosphatase 62 (40-150) U/L Albumin 4.0 (3.3-5.0) g/dL
[2025-05-30] MEDS: SODIUM CHLORIDE 0.9 % (FLUSH) 10 ML SYRINGE 5 ML IVF (20:56)
[2025-05-30] MEDS: ENOXAPARIN 30 MG/0.3ML INJ SUBCUT (20:56)
[2025-05-30] MEDS: CALCITONIN,SALMON,SYNTHETIC 200 UNIT/ML inj SUBCUT (21:00)
[2025-05-30 21:15] LABS: Calcium* 14.0 mg/dL (8.4-10.6)
[2025-05-30 21:44] LABS: Vitamin D 25 Hydroxy* 55 ng/mL (30-80)
[2025-05-31] VITALS (13 sets, daily range): BP systolic 149–184; BP diastolic 76–109; PULSE 64–80; RESP 16–18; TEMP 36.6–37.1; O2SAT 96–100; BMI 16.6
[2025-05-31 02:03] LABS: Lactate* 1.0 mmol/L (0.5-1.9)
[2025-05-31 02:29] LABS: Calcium* 12.1 mg/dL (8.4-10.6)
--- NOTE | 2025-05-31 05:24 | PC.NURSE ---
Calcium came back at 12.1 with 2am draw. Jaelyn Hendrickson Hospitalist. No new orders.
[2025-05-31 05:48] LABS: Ionized Calcium* 1.51 mmol/L (1.11-1.30)
[2025-05-31 05:52] LABS: Hematocrit* 34.1 % (33.0-51.0); Hemoglobin* 10.9 gm/dL (12.0-16.0); Mean Corpuscular HGB Conc 32 gm/dL (32-36); Mean Corpuscular Hemoglobin 28 pg (26-34); Mean Corpuscular Volume 88 fL (80-100); Red Blood Count* 3.89 m/uL (4.00-5.20); White Blood Count* 7.03 K/uL (4.50-11.00)
[2025-05-31 05:54] LABS: Slide Review Reflex No
[2025-05-31 06:06] LABS: Chloride* 105 mmol/L (96-114); Potassium* 3.9 mmol/L (3.6-5.1); Sodium* 136 mmol/L (135-149)
[2025-05-31 06:09] LABS: Anion Gap 8 mEq/L (7-15); Blood Urea Nitrogen* 25 mg/dL (7-30); Calcium* 11.7 mg/dL (8.4-10.6); Carbon Dioxide* 23 mmol/L (20-32); Creatinine* 1.7 mg/dL (0.5-1.5); Est. Creatinine Clearance* 16.80; Estimated Glomerular Filt Rate 29 ml/min; Glucose* 107 mg/dL (60-115)
--- NOTE | 2025-05-31 07:30 | PC.NURSE ---
End of shift [id number]: Pt AxOx3 upon initial assessment, increased confusion throughout the night. Pleasant and cooperative with cares. Fluids running @ 125 ml/hr. Denies pain. BPs taken frequently due to high BP reported to MD. Pt remains asymptomatic to BPs. SBA to the bathroom. Continent of the bladder. Tolerating fluids and diet well. Call light within reach.
[2025-05-31] MEDS: ONDANSETRON 2 MG/ML inj 4 MG IVP ×2 (08:07→16:41)
[2025-05-31] MEDS: SODIUM CHLORIDE 0.9 % (FLUSH) 10 ML SYRINGE 5 ML IVF ×2 (08:08→16:41)
[2025-05-31] MEDS: POTASSIUM CHLORIDE 10 MEQ CAPSULE ER PO (08:49)
--- NOTE | 2025-05-31 09:22 | P.NUTASMT_ITS ---
Hospital Nutrition Assessment Patient Data Patient Gender: Female Patient Age: 85 Height: 5 ft 4 in Weight: 97 lb Body Mass Index: 16.6 Usual Body Weight: 115 lb Weight Calculations [place] Body Weight (lbs): 120.00 [place] Body Weight (kg): 54.43 Percent of [place] Body Weight: 81 Adjusted Body Weight (lbs): 114.25 Adjusted Body Weight (kg): 51.82 Percent of Usual Body Weight: 84 Basal Energy Expenditure (BEE): 979.13 Basal Energy Expenditure (BEE) Adjusted Weight: 1053.93 Activity/Stress Factors Injury Factor/Activity Factor Value: 1.3 Total Energy Requirements Kcal requirements (current wt): 1272.869 Kcal requirements (adj wt): 1370.109 Protein Need (adj wt): 1.4 Total Protein (adj wt): 72.548 Fluid Need (adj wt): 30 Total Fluid (adj wt): 1554.60 Nutrition Assessment Diet Order: Regular Food Modified for Dysphagia: 7-Regular Liquid Modified for Dysphagia: 0-Thin Allergies: NKFA Appetite Prior to Admission: Poor Appetite and Intake: Bites of breakfast this morning. Supplements and/or snacks: Other - see comment Comment: She reports drinking oral nutrition supplements at home prior to arrival. Hx Appetite Changes: Yes (Very poor x2-3 months.) Hx Weight Loss: Yes (Limited wt history in chart. Per MD report, -9kg in 4 months (~20% body wt)) Hx Weight Gain: No Nausea: Yes (d/t hypercalcemia) Vomiting: Yes Diarrhea: No Hx Constipation: No Chewing Difficulty: No Swallowing Difficulty: No Diagnosis/Symptom or Procedure: symptomatic hypercalcemia Clinical History: Medical history includes but not limited to hypertension, hyperlipidemia, history of NSTEMI, cognitive impairment, recent finding of hypercalcemia and retroperitoneal lymphadenopathy with concern for lymphoma (cur rently in workup). History of cognitive impairment - MOCA 13 out of 30 on 04/28/2025, at that time thought to be a combination of underlying dementia plus metabolic encephalopathy with hypercalcemia. Current Living Situation: Lives at home with son. Medications Medications: reviewed. Lab Results Lab Results: reviewed. Education Dietary Topic: High Calorie/High Protein Topic Comment: High protein, high calorie diet education related to weight loss and malnutrition completed on 04/30/2025 to patient and her son. Assessment/Plan PES Statement: Inadequate oral intake related to low appetite, nausea and vomiting as evidenced by minimal intakes of bites and patient reporting not eating meals. Nutritional Assessment Summary: RDN with nutrition screen related to underweight BMI, positive skin risk, oral intakes, and malnutrition dx. RDN visited with patient whom reports a low appetite with nausea and some vomiting. She also reports weight loss, however unable to tell me how much. She was drinking oral nutrition supplements at home. She reports liking the vanilla flavor the best. Weight loss is significant of about 19 lbs in 4 months per MD report. Weight history is limited with stated weights of 115lbs from December and January 2025. Patient agreed to receive Ensure Enlive or Ensure Clear TID to provided 720-1050 kcals and 24-60 grams protein daily. Patient has malnutrition diagnosis. See below for malnutrition assessment. Discharge Plan-Living Situation: TBD - anticipating home with son. Goals: Adequate oral intakes of 50%+ meals and supplements without vomiting. No s/s dehydration. Plan/Recommendation: Regular diet per MD order and tolerance. Offer Ensure Enlive/Clear TID per patient preference on timing and flavor. RDN will continue to monitor and follow-up prn. Malnutrition Assessment Current Energy Intake: Less Than 75% Estimated Timeframe Of Energy Intake: Greater Than Or Equal To 3 Months Weight Changes: >7.5% In 3 Months Recommended Malnutrition Diagnosis: Severe Protein-Calorie Malnutrition In The Context: Acute Injury/Illness and Chronic Illness (Suspected lymphoma (currently in workup) due to recent hypercalcemia and retroperitoneal lymphadenopathy.) Based On: Weight Loss and Inadequate Energy Intakes
[2025-05-31] MEDS: FUROSEMIDE 10 MG/ML inj 20 MG IVP (10:10)
--- NOTE | 2025-05-31 10:31 | P.IMPN_ITS ---
Assessment and Plan Assessment and plan (1) Hypercalcemia: Problem comment: - acute on chronic, recurrent. Malignancy suspected as source; currently in workup at [facility] - 05/30: Calcium 14.0; symptomatic with nausea, poor appetite, unsteady gait, memory issues, fatigue. Treated with NS and Calcitonin x1 - 05/31: improved to 11.7; will give Lasix x1. Consider renally doses Zoledronic acid if increases to >12 again Status: Acute (2) Lymphadenopathy, retroperitoneal: Problem comment: - suspected malignant, possibly lymphoma - biopsy and cytogenetic tissue studies 05/16/2025 at [facility], pending results Status: Acute (3) Renal insufficiency: Problem comment: - creatinine 1.8, has been 1.81-1.61 in the past month so not truly an ALEXANDER - poor po intake so likely combination of prerenal disease + intrarenal insult (hypercalcemia/malignancy, iatrogenic) - receiving fluids for hypercalcemia - holding home lisinopril, avoid nephrotoxic medications, continue to monitor Status: Acute (4) Low back pain: Problem comment: - reported in ED, no imaging done. Will see if this improves with hydration and calcium management. Consider imaging if new or worsening symptoms or no improvement - symptomatic cares, improved 05/31/25 Status: Acute (5) Cognitive impairment: Problem comment: - [place] 13/30 on 04/28/2025 - at that time thought to be a combination of underlying dementia plus metabolic encephalopathy with hypercalcemia - monitor for acute delirium Status: Acute (6) Malnutrition: Problem comment: - 9kg weight loss/20% of body weight in the past 4 months - Appears primarily due to poor appetite and poor oral intake which is likely due to malignancy and recurrent hypercalcemia. Status: Acute Plan - per above - marci Malagon updated by phone, questions answered Subjective Date Seen: 05/31/25 Interval history: Darcy was admitted to the hospital last night for recurrent hypercalcemia, malignancy presumably source. She was 1st diagnosed with this and hospitalized from 04/26/25-04/30/25 with significant adenopathy on abdominal imaging. Her Calcium was >15 and she was treated with zoledronic acid and IVFs. Calcium on discharge was 10.2 Had a lymph node biopsy performed 2 weeks ago at [facility], results pending at this time. Yesterday, she re-presented to the emergency room for acute confusion and found to have a calcium of 14.0. She was treated with IV fluids and calcitonin overnight, with improvement of jasmin cium to 11.7 today. Zoledronic acid was deferred given creatinine of 1.8. This morning, and continues to have intermittent confusion. She also had nausea and threw up after eating breakfast. She has no complaints of pain for me today. She lives independently in [place]; son Manas has been staying with her recently. Exam Narrative: Exam Narrative: GEN: Alert and sitting comfortably in bedside chair, intermittently confused but aware (ie knows she is unable to find the words she is looking for) HEENT: Normal external ears, EOMIs bilaterally, no scleral icterus CV: RRR, 2-3/6 early systolic murmur heard best at left sternal border R: LCTA bilaterally without concerning wheezing Ext: wwp, no concerning edema Skin: No concerning skin lesions or rashes on exposed skin Neuro: No focal deficits on limited exam Psych: Mild cognitive impairment as noted above, no agitation Const: Vital Signs, click to edit/add: Vital Signs - 24 hr 05/30/25 16:10 05/30/25 17:38 05/30/25 17:45 Temperature 98.2 F Pulse Rate 64 67 Pulse Rate [Pulse Oximeter] 68 Respiratory Rate 18 Blood Pressure 159/80 H Blood Pressure [Le ft Arm] Blood Pressure [Ri ght Arm] Blood Pressure [Ri ght Upper Arm] 120/72 Pulse Oximetry 96 98 99 Oxygen Delivery Me thod Room Air 05/30/25 18:00 05/30/25 18:15 05/30/25 18:45 Temperature Pulse Rate 65 66 Pulse Rate [Pulse Oximeter] Respiratory Rate 16 Blood Pressure Blood Pressure [Le ft Arm] Blood Pressure [Ri ght Arm] Blood Pressure [Ri ght Upper Arm] Pulse Oximetry 99 98 Oxygen Delivery Me thod 05/30/25 19:23 05/30/25 20:04 05/30/25 22:38 Temperature 97.7 F 98.2 F Pulse Rate Pulse Rate [Pulse Oximeter] 67 67 Respiratory Rate 16 16 Blood Pressure Blood Pressure [Le ft Arm] 165/88 H 201/97 H Blood Pressure [Ri ght Arm] 204/102 H Blood Pressure [Ri ght Upper Arm] Pulse Oximetry 97 97 Oxygen Delivery Me thod Room Air Room Air Room Air 05/30/25 23:50 05/31/25 00:03 05/31/25 01:09 Temperature Pulse Rate 77 Pulse Rate [Pulse Oximeter] Respiratory Rate Blood Pressure Blood Pressure [Le ft Arm] 161/119 H Blood Pressure [Ri ght Arm] 162/81 H Blood Pressure [Ri ght Upper Arm] Pulse Oximetry Oxygen Delivery Me thod 05/31/25 02:36 05/31/25 07:00 Temperature 98.7 F 98.0 F Pulse Rate Pulse Rate [Pulse Oximeter] 74 80 Respiratory Rate 18 18 Blood Pressure Blood Pressure [Le ft Arm] 170/86 H 184/109 H Blood Pressure [Ri ght Arm] Blood Pressure [Ri ght Upper Arm] Pulse Oximetry 98 97 Oxygen Delivery Nm thod Room Air Room Air Labs Labs: Laboratory Results - last 24 hr 05/30/25 05/30/25 05/30/25 16:40 20:29 20:45 WBC 6.22 RBC 4.65 Hgb 12.9 Hct 40.6 MCV 87 MCH 28 MCHC 32 RDW Coeff of Diane 14.4 Plt Count 348 Neut % (Auto) 71.5 Lymph % (Auto) 16.2 L [place] % (Auto) 10.6 Eos % (Auto) 1.0 Baso % (Auto) 0.2 Neut # (Auto) 4.45 Lymph # (Auto) 1.00 [place] # (Auto) 0.70 Eos # (Auto) 0.06 Baso # (Auto) 0.01 Abs Immat Gran (auto) 0.03 Imm/Tot Granulo (auto) 0.5 Sodium 134 L Potassium 4.0 Chloride 99 Carbon Dioxide 27 Anion Gap 8 BUN 26 Creatinine 1.8 H Estimated Creat Clear Estimated GFR 27 Glucose 121 H Lactate 2.1 H Calcium 14.0 H* Ionized Calcium Cindy 1.81 H Phosphorus 4.1 Magnesium 2.4 Total Bilirubin 0.5 Direct Bilirubin 0.2 AST 29 ALT 15 Alkaline Phosphatase 62 C-Reactive Protein 2.0 H Total Protein 7.2 Albumin 4.0 25-OH Vitamin D Total 55 Lab Acknowledgement Test Added 05/31/25 05/31/25 01:59 05:43 WBC 7.03 RBC 3.89 L Hgb 10.9 L Hct 34.1 MCV 88 MCH 28 MCHC 32 RDW Coeff of Diane Plt Count 308 Neut % (Auto) Lymph % (Auto) [place] % (Auto) Eos % (Auto) Baso % (Auto) Neut # (Auto) Lymph # (Auto) [place] # (Auto) Eos # (Auto) Baso # (Auto) Abs Immat Gran (auto) Imm/Tot Granulo (auto) Sodium 136 Potassium 3.9 Chloride 105 Carbon Dioxide 23 Anion Gap 8 BUN 25 Creatinine 1.7 H Estimated Creat Clear 16.80 Estimated GFR 29 Glucose 107 Lactate 1.0 Calcium 12.1 H* 11.7 H Ionized Calcium Cindy 1.51 H Phosphorus Magnesium Total Bilirubin Direct Bilirubin AST ALT Alkaline Phosphatase C-Reactive Protein 1.6 H Total Protein Albumin 25-OH Vitamin D Total Lab Acknowledgement
--- NOTE | 2025-05-31 10:59 | PC.SOCIAL ---
Addendum entered by ISSAC Murray 05/31/25 12:11: Discharge planning: hops farmworker spoke to Dania at [facility] out of the [place] office #[phone]. Dania states the pt has PT, [facility] and [facility] for [facility]. Pt had OT, but they discharged her on the 29 of May. [facility] will need resumption of care orders faxed to them when the pt is ready for discharge. Resumption of care orders will need to be faxed to the intake team at fax number #[phone]. Social work to follow-up as needed. Original Note: Discharge planning: hops farmworker met with pt in her room who states that she does have home care through [facility], but she is not sure what services are provided. hops farmworker can reach out to them to clarify this and also let them know that the pt is in the hospital at this time. Pt states that she has no memory of what has happened over the past several days, which is not normal for her. Pt states that her son(who usually resides in [place]) has been staying with her and will most likely stay with her another week or so. The pt also states that one of her brothers lives with her and is helpful. The pt stated that her brother was going to move out soon, but now plans to stay longer with her most likely through the spring. Pt stated that she hopes to return home after this hospital stay with her son/brother and her [facility] services resumed. Per pt's PT note from this morning it looks like that plan will be appropriate for discharge at this time. Pt states that she had a biopsy done at [facility] about a month ago and has still not gotten the results. Pt seemed frustrated and concerned about this, but also understood that those tests can take time to process. Social work to follow-up as needed.
--- NOTE | 2025-05-31 13:26 | PC.NURSE ---
End of Shift Note: Patient has not complained of any pain today. She did have an emesis with breakfast and received a dose of zofran and has not had any more since she received this medication. Have noted her blood pressure was extremely high at the start of my shift. Gave her medications as order monitored and updated hospitalist throughout shift. She denies pain. She has had a very poor appetite this whole shift only taking very few bites of anything. Have offered her a vanilla ensure which she only took a few sips of this. Has sat up in the chair most of this shift and only ambulated so far to the bathroom and back to the chair. Noted she is having some memory issues. Has repeated the same question a few times and have reoriented to how to use the call light a few times and even showed her the printed off sheet which highlights how to use the call light. Will continue to monitor until able to give report to next shift.
[2025-05-31] MEDS: ENOXAPARIN 30 MG/0.3ML INJ SUBCUT (21:09)
--- NOTE | 2025-05-31 23:42 | PC.NURSE ---
end of shift: Pt. is AOX4, but forgetful. Son bedside and supportive. Pt. low appetite and nausea. Anti-emetic given; see EMAR. Pt. able to eat light meal afterwards. AMB SBA. Pt is weak.
[2025-06-01] VITALS (9 sets, daily range): BP systolic 128–161; BP diastolic 72–105; PULSE 54–84; RESP 10–18; TEMP 36.6–36.8; O2SAT 96–98
[2025-06-01 06:04] LABS: Hematocrit* 30.3 % (33.0-51.0); Hemoglobin* 9.8 gm/dL (12.0-16.0); Immature Granulocytes Abs Auto 0.03 K/uL (0.00-0.30); Immature Granulocytes Pct Auto 0.5 %; Mean Corpuscular HGB Conc 32 gm/dL (32-36); Mean Corpuscular Hemoglobin 28 pg (26-34); Mean Corpuscular Volume 87 fL (80-100); RDW Coefficient of Variation % 14.4 % (11.5-15.5); Red Blood Count* 3.47 m/uL (4.00-5.20); White Blood Count* 5.79 K/uL (4.50-11.00)
[2025-06-01 06:05] LABS: Ionized Calcium* 1.40 mmol/L (1.11-1.30)
[2025-06-01 06:08] LABS: Lymphocytes Absolute Auto 0.90 K/uL (0.90-2.90); Slide Review Reflex No
[2025-06-01 06:22] LABS: Chloride* 108 mmol/L (96-114); Sodium* 137 mmol/L (135-149)
[2025-06-01 06:25] LABS: Anion Gap 4 mEq/L (7-15); Blood Urea Nitrogen* 19 mg/dL (7-30); Carbon Dioxide* 25 mmol/L (20-32); Creatinine* 1.4 mg/dL (0.5-1.5); Est. Creatinine Clearance* 20.41; Estimated Glomerular Filt Rate 37 ml/min
[2025-06-01 06:26] LABS: Calcium* 10.5 mg/dL (8.4-10.6); Glucose* 88 mg/dL (60-115)
[2025-06-01 06:36] LABS: Potassium* 2.8 mmol/L (3.6-5.1)
--- NOTE | 2025-06-01 07:32 | PC.NURSE ---
Pt pleasant, alert and oriented to self with periods of forgetfulness/confusion. Pt made multiple attempts to get out of bed without utilizing the call light, bed alarm on. SBA with 2WW and gait belt. IV patent. Denies nausea. Pt in bed, appears to be resting, call light within reach.
[2025-06-01] MEDS: POTASSIUM CHLORIDE 10 MEQ CAPSULE ER 20 MEQ PO (08:34)
[2025-06-01] MEDS: FUROSEMIDE 20 MG TABLET PO (08:34)
[2025-06-01] MEDS: POTASSIUM CHLORIDE 10 MEQ/100 ML PIGGYBACK 100 MEQ IVPB ×4 (08:35→13:40)
[2025-06-01] MEDS: ONDANSETRON 2 MG/ML inj 4 MG IVP (09:01)
--- NOTE | 2025-06-01 11:14 | P.IMPN_ITS ---
Assessment and Plan Assessment and plan (1) Hypercalcemia: Problem comment: - acute on chronic, recurrent. Malignancy suspected as source; currently in workup at [facility] - 05/30: Calcium 14.0; symptomatic with nausea, poor appetite, unsteady gait, memory issues, fatigue. Treated with NS and Calcitonin x1 - 05/31: improved to 11.7; will give Lasix x1. Consider renally doses Zoledronic acid if increases to >12 again - 06/01: 10.5 with persistently elevated ionized calcium. K is 2.8. Supplemental potassium, continue daily furosemide Status: Acute (2) Lymphadenopathy, retroperitoneal: Problem comment: - suspected malignant, possibly lymphoma - biopsy and cytogenetic tissue studies 05/16/2025 at [facility], pending results Status: Acute (3) Renal insufficiency: Problem comment: - creatinine 1.8 on admission, has been 1.81-1.61 in the past month so not truly an ALEXANDER - poor po intake so likely combination of prerenal disease + intrarenal insult (hypercalcemia/malignancy, iatrogenic) - received fluids for hypercalcemia - holding home lisinopril, avoiding nephrotoxic medications, continue to monitor - 06/01: Creatinine has improved to 1.4 Status: Acute (4) Low back pain: Problem comment: - reported in ED, no imaging done. Will see if this improves with hydration and calcium management. Consider imaging if new or worsening symptoms or no improvement - symptomatic cares, improved 05/31/25 Status: Acute (5) Cognitive impairment: Problem comment: - [place] 13/30 on 04/28/2025 - at that time thought to be a combination of underlying dementia plus metabolic encephalopathy with hypercalcemia - monitor for acute delirium Status: Acute (6) Malnutrition: Problem comment: - 9kg weight loss/20% of body weight in the past 4 months - Appears primarily due to poor appetite and poor oral intake which is likely due to malignancy and recurrent hypercalcemia - nutrition team following Status: Acute Plan - Per above - likely discharge home tomorrow with resumption of home care - marci Malagon updated, questions answered. Also discussed case with PCP, Dr. Velasco Subjective Date Seen: 06/01/25 Interval history: Darcy was admitted to the hospital on 05/30/25 for recurrent hypercalcemia, malignancy presumably source. She was first noted to have hypercalcemia (>15) in April; hospitalized here from 04/26/25-04/30/25 with significant adenopathy on abdominal imaging. She was treated with zoledronic acid and IVFs. Calcium on discharge was 10.2 Had a lymph node biopsy performed 2 weeks ago at [facility], pathology still pending. On 05/30, she re-presented to the emergency room for acute confusion and found to have a calcium of 14.0. 05/30: Treated with IV fluids and calcitonin; Zoledronic acid was deferred given creatinine of 1.8. 05/31: Calcium improved to 11.7; continued IVFs and added Furosemide x1 IV. Creatinine improved to 1.7 06/01: Calcium 10.5 with persistent mild elevation of ionized Calcium at 1.40. Potassium 2.8 this morning Darcy continues to have intermittent confusion and nausea. Oral intake is low and she is meeting with our nutrition team to discuss options. She lives independently in [place]; son Manas has been staying with her recently and brother also has been staying in her home. No previous history of cognitive impairment, confirmed with PCP Dr. Velasco. Exam Narrative: Exam Narrative: GEN: Alert and sitting comfortably in bedside chair, nontoxic but appears thin HEENT: EOMIs bilaterally, no scleral icterus CV: RRR, + systolic murmur again heard best at left sternal border R: LCTA bilaterally Ab: Mild distension, no tenderness to palpation. Ext: wwp, no concerning edema Skin: No concerning skin lesions or rashes on exposed skin Neuro: No focal deficits Psych: Intermittent difficulty with word finding, otherwise appropriate Const: Vital Signs, click to edit/add: Vital Signs - 24 hr 05/31/25 13:10 05/31/25 13:25 05/31/25 15:50 Temperature Pulse Rate 64 Pulse Rate [Pulse Oximeter] 66 Respiratory Rate Blood Pressure [Le ft Arm] 151/82 H Pulse Oximetry Oxygen Delivery Me thod 05/31/25 15:51 05/31/25 17:15 05/31/25 18:58 Temperature 97.8 F 98 F Pulse Rate 65 Pulse Rate [Pulse Oximeter] 66 68 Respiratory Rate 18 16 Blood Pressure [Le ft Arm] 172/87 H 155/76 H Pulse Oximetry 97 97 Oxygen Delivery Me thod Room Air Room Air 05/31/25 23:00 05/31/25 23:43 06/01/25 00:25 Temperature 98.2 F Pulse Rate 71 Pulse Rate [Pulse Oximeter] 72 72 Respiratory Rate 16 16 Blood Pressure [Le ft Arm] 149/78 H Pulse Oximetry 96 Oxygen Delivery Me thod Room Air 06/01/25 03:25 06/01/25 07:00 Temperature 97.8 F Pulse Rate 64 Pulse Rate [Pulse Oximeter] 84 Respiratory Rate 14 Blood Pressure [Le ft Arm] 128/88 Pulse Oximetry 97 Oxygen Delivery Me thod Room Air Labs Labs: Laboratory Results - last 24 hr 06/01/25 05:53 WBC 5.79 RBC 3.47 L Hgb 9.8 L Hct 30.3 L MCV 87 MCH 28 MCHC 32 RDW Coeff of Diane 14.4 Plt Count 274 Neut % (Auto) 69.7 Lymph % (Auto) 14.7 L [place] % (Auto) 13.1 H Eos % (Auto) 1.7 Baso % (Auto) 0.3 Neut # (Auto) 4.03 Lymph # (Auto) 0.90 [place] # (Auto) 0.80 Eos # (Auto) 0.10 Baso # (Auto) 0.02 Abs Immat Gran (auto) 0.03 Imm/Tot Granulo (auto) 0.5 Sodium 137 Potassium 2.8 L* Chloride 108 Carbon Dioxide 25 Anion Gap 4 L BUN 19 Creatinine 1.4 Estimated Creat Clear 20.41 Estimated GFR 37 Glucose 88 Calcium 10.5 Ionized Calcium Cindy 1.40 H Magnesium 1.8
--- NOTE | 2025-06-01 11:21 | W.PC.NUTR.NO ---
Nutrition Progress Note Progress Note Progress Note: Nutrition Follow-Up: RDN with follow-up visit with patient and son (Manas). Patient lives at home with son. Patient's weight continues to be stable. Diet is Regular. Put in order for diet to be changed to high protein, high calorie. Meal intakes minimal since admit. Ensure Enlive/Clear ordered TID, intakes have been sips. Visited with patient and son, Manas. Patient was eating eggs during visit. Manas reports Darcy trying oral nutrition supplements at home. He has educational handouts related to high protein, high calorie diet at home from pervious hospitalization in 04/2025. Offered diet education for high protein, high calorie diet however Manas declined at this time. Encouraged Manas to continue offering Darcy supplement multiple times daily. No additional interventions at this time. Continue to monitor.
[2025-06-01] MEDS: 0.9 % SODIUM CHLORIDE 250 ml 250 ML 75 ML IV (14:22)
--- NOTE | 2025-06-01 15:02 | PC.NURSE ---
Patient has been very pleasant and cooperative throughout the shift. Appetite has been poor. Nutritional protein shake given. VSS. Afebrile. Moderately confused and forgetful. Patient stated that she has been having visions of her sitting in front of her throughout the morning. SBA with walker. Needs reinforcement education on how to use the call light. Call light within reach.
[2025-06-01 15:28] LABS: Potassium* 3.7 mmol/L (3.6-5.1)
--- NOTE | 2025-06-01 18:29 | PC.NURSE ---
Progress Note Pt pleasant and cooperative with cares, occasional confusion. Assist of 1 with walker. pt had a low appetite throughout shift. No pain reported. pt in bed with son at bedside.
[2025-06-01] MEDS: SODIUM CHLORIDE 0.9 % (FLUSH) 10 ML SYRINGE 5 ML IVF (21:31)
[2025-06-01] MEDS: ENOXAPARIN 30 MG/0.3ML INJ SUBCUT (21:31)
[2025-06-02 03:26] VITALS: BP 160/82; PULSE 61; RESP 18; TEMP 36.4; O2SAT 95
[2025-06-02 06:41] LABS: Hematocrit* 29.9 % (33.0-51.0); Hemoglobin* 9.7 gm/dL (12.0-16.0); Immature Granulocytes Abs Auto 0.02 K/uL (0.00-0.30); Immature Granulocytes Pct Auto 0.4 %; Lymphocytes Absolute Auto 0.90 K/uL (0.90-2.90); Mean Corpuscular HGB Conc 32 gm/dL (32-36); Mean Corpuscular Hemoglobin 28 pg (26-34); Mean Corpuscular Volume 87 fL (80-100); RDW Coefficient of Variation % 14.5 % (11.5-15.5); Red Blood Count* 3.42 m/uL (4.00-5.20); White Blood Count* 5.32 K/uL (4.50-11.00)
[2025-06-02 06:42] LABS: Slide Review Reflex No
[2025-06-02 06:58] LABS: Albumin* 2.9 g/dL (3.3-5.0); Chloride* 105 mmol/L (96-114); Sodium* 133 mmol/L (135-149)
[2025-06-02 07:00] VITALS: BP 164/79; PULSE 59; PULSE 99; RESP 16; TEMP 36.6; O2SAT 99
[2025-06-02 07:00] LABS: Blood Urea Nitrogen* 16 mg/dL (7-30); Creatinine* 1.3 mg/dL (0.5-1.5); Est. Creatinine Clearance* 21.68; Estimated Glomerular Filt Rate 40 ml/min
[2025-06-02 07:01] LABS: Alanine Aminotransferase* 10 U/L (4-35); Alkaline Phosphatase* 46 U/L (40-150); Anion Gap 5 mEq/L (7-15); Aspartate Amino Transferase* 28 U/L (12-35); Bilirubin Total* 0.4 mg/dL (0.1-1.5); Calcium* 9.9 mg/dL (8.4-10.6); Carbon Dioxide* 23 mmol/L (20-32); Glucose* 80 mg/dL (60-115); Total Protein* 5.3 g/dL (6.0-8.3)
[2025-06-02 07:11] LABS: Potassium* 2.9 mmol/L (3.6-5.1)
--- NOTE | 2025-06-02 07:28 | PC.NURSE ---
Pt pleasant, alert and oriented to self with periods of forgetfulness/confusion. Hypertensive, otherwise, VSS. Tele reads NSR. Pt made multiple attempts to get out of bed without utilizing the call light, bed alarm on. SBA. IV patent. Denies nausea. Pt in bed, appears to be resting, call light within reach.?
[2025-06-02 07:30] VITALS: PULSE 59
[2025-06-02] MEDS: POTASSIUM BICARB 25 MEQ EFFERVESCENT TAB PO ×3 (08:23→10:25)
[2025-06-02] MEDS: POTASSIUM CHLORIDE 10 MEQ CAPSULE ER 20 MEQ PO (08:38)
[2025-06-02] MEDS: SODIUM CHLORIDE 0.9 % (FLUSH) 10 ML SYRINGE 5 ML IVF ×2 (08:41→11:54)
[2025-06-02 10:29] VITALS: BP 139/71; PULSE 60; RESP 16; O2SAT 98
--- NOTE | 2025-06-02 11:30 | PM.DS1 ---
DS: Providers Provider Date Seen: 06/02/25 Date of admission: 05/30/25 18:52 Primary care physician: Johanna Velasco MD Admitting Clinician: Lucinda Villagran MD Consults: 05/30/25 20:29 Consult to Occupational Therapy [CONS] Routine Comment: Reason(s) for OT Consult:: Evaluate and Treat Any Restrictions?:: No Restrictions Consult to Physical Therapy [CONS] Routine Comment: Reason(s) for PT Consult:: Evaluate and Treat Any Restrictions?:: No Restrictions 05/31/25 09:56 Consult to Nutrition [CONS] Routine Comment: Reason for consult:: Weight Loss Attending Physician on discharge: Marcela Brownlee MD Date of Discharge: 06/02/25 DS: Diagnosis Discharge Diagnosis (1) Hypercalcemia: Status: Acute Problem details: - acute on chronic, recurrent. Malignancy suspected as source; currently in workup at [facility] - 05/30: Calcium 14.0; symptomatic with nausea, poor appetite, unsteady gait, memory issues, fatigue. Treated with NS and Calcitonin x1 - 05/31: improved to 11.7; will give Lasix x1. Consider renally doses Zoledronic acid if increases to >12 again - 06/01: 10.5 with persistently elevated ionized calcium. K is 2.8. Supplemental potassium, continue daily furosemide - 06/02: 9.9 (2) Lymphadenopathy, retroperitoneal: Status: Acute Problem details: - suspected malignant, possibly lymphoma - biopsy and cytogenetic tissue studies 05/16/2025 at [facility], pathology pending as of 06/02/25 (3) Renal insufficiency: Status: Acute Problem details: - creatinine 1.8 on admission, has been 1.81-1.61 in the past month so not truly an ALEXANDER - poor po intake so likely combination of prerenal disease + intrarenal insult (hypercalcemia/malignancy, iatrogenic) - received fluids for hypercalcemia - held home lisinopril and will DC this on discharge - discharge creatinine of 1.3 (4) Cognitive impairment: Status: Acute Problem details: - Reynolds 13/30 on 04/28/2025 - at that time thought to be a combination of underlying dementia plus metabolic encephalopathy with hypercalcemia - monitor for acute delirium - on day of discharge, significant improvement (5) Malnutrition: Status: Acute Problem details: - 9kg weight loss/20% of body weight in the past 4 months - Appears primarily due to poor appetite and poor oral intake which is likely due to malignancy and recurrent hypercalcemia - nutrition team following (6) Low back pain: Status: Acute Problem details: - reported in ED, no imaging done. Will see if this improves with hydration and calcium management. Consider imaging if new or worsening symptoms or no improvement - symptomatic cares, improved to baseline 05/31/25 DS: Summary Hospital Course Hospital Course: Darcy was admitted to the hospital on 05/30/25 for recurrent hypercalcemia, malignancy presumably source. She was first noted to have hypercalcemia (>15) in April; hospitalized here from 04/26/25-04/30/25 with significant adenopathy on abdominal imaging. She was treated with zoledronic acid and IVFs. Calcium on discharge was 10.2 Had a lymph node biopsy performed 2 weeks ago at [facility], pathology still pending. On 05/30, she re-presented to the emergency room for acute confusion and found to have a calcium of 14.0. On admission, treated with IV fluids and calcitonin; Zoledronic acid was deferred given creatinine of 1.8. During stay, she was also given furosemide with normalization of calcium on hospital day 3; calcium remains normal at 9.9 upon discharge. Had iatrogenic hypokalemia from furosemide; this was replaced. Noted nausea intermittently during stay, was able to manage this with small frequent meals. Nutrition team followed. Significant improvement in mentation on day of discharge. Darcy was medically appropriate for discharge home with son Manas on 06/02/2025; home health care will resume upon discharge. Follow-up with PCP has been scheduled; recommend checking BMP next week. Status at Discharge Overall status at discharge: patient is progressing back to baseline Time Spent with Patient Time attestation: Total time spent providing and/or coordinating discharge services: Time spent: Greater than 30 minutes Specific discharge activities: Family updates, medication reconciliation and Education Exam Narrative: Exam Narrative: GEN: Alert and oriented, much clearer than previous. She is sitting comfortably in bedside chair and having breakfast HEENT: EOMIs bilaterally, no scleral icterus CV: RRR, soft systolic murmur heard best at left sternal border R: LCTA bilaterally Ab: Soft and nontender, tolerates exam Skin: No concerning skin lesions or rashes on exposed skin Neuro: No focal deficits Psych: Appropriate Const: Vital Signs, click to edit/add: Vital Signs - 24 hr 06/01/25 15:40 06/01/25 16:45 06/01/25 19:32 Temperature 97.9 F 97.9 F Pulse Rate 54 L Pulse Rate [Bilate ral Dorsalis Pedis ] Pulse Rate [Pulse Oximeter] 58 L 66 Respiratory Rate 10 L 18 Blood Pressure [Le ft Arm] 156/76 H Blood Pressure [Ri ght Arm] 158/72 H Pulse Oximetry 98 97 Oxygen Delivery Me thod Room Air Room Air 06/01/25 23:00 06/01/25 23:00 06/01/25 23:22 Temperature 98.2 F Pulse Rate 62 Pulse Rate [Bilate ral Dorsalis Pedis ] Pulse Rate [Pulse Oximeter] 66 64 Respiratory Rate 18 16 Blood Pressure [Le ft Arm] Blood Pressure [Ri ght Arm] 143/72 H Pulse Oximetry 96 Oxygen Delivery Fl thod Room Air 06/02/25 03:26 06/02/25 07:00 06/02/25 07:30 Temperature 97.6 F 97.9 F Pulse Rate 59 L Pulse Rate [Bilate ral Dorsalis Pedis ] 59 L Pulse Rate [Pulse Oximeter] 61 99 Respiratory Rate 18 16 Blood Pressure [Le ft Arm] 160/82 H 164/79 H Blood Pressure [Ri ght Arm] Pulse Oximetry 95 99 Oxygen Delivery Fl thod Room Air Room Air 06/02/25 10:29 Temperature Pulse Rate Pulse Rate [Bilate ral Dorsalis Pedis ] 60 Pulse Rate [Pulse Oximeter] 60 Respiratory Rate 16 Blood Pressure [Le ft Arm] 139/71 Blood Pressure [Ri ght Arm] Pulse Oximetry 98 Oxygen Delivery Fl thod Room Air DS: Data Data Completed and Pending Labs on day of discharge: Labs from last 24 hours 06/02/25 06/01/25 06:15 15:00 WBC 5.32 RBC 3.42 L Hgb 9.7 L Hct 29.9 L MCV 87 MCH 28 MCHC 32 RDW Coeff of Diane 14.5 Plt Count 267 Neut % (Auto) 65.5 Lymph % (Auto) 17.7 L [place] % (Auto) 13.9 H Eos % (Auto) 2.1 Baso % (Auto) 0.4 Neut # (Auto) 3.49 Lymph # (Auto) 0.90 [place] # (Auto) 0.70 Eos # (Auto) 0.11 Baso # (Auto) 0.02 Abs Immat Gran (auto) 0.02 Imm/Tot Granulo (auto) 0.4 Sodium 133 L Potassium 2.9 L* 3.7 Chloride 105 Carbon Dioxide 23 Anion Gap 5 L BUN 16 Creatinine 1.3 Estimated Creat Clear 21.68 Estimated GFR 40 Glucose 80 Calcium 9.9 Magnesium 1.6 Total Bilirubin 0.4 AST 28 ALT 10 Alkaline Phosphatase 46 Total Protein 5.3 L Albumin 2.9 L Discharge Plan Discharge Disposition: Home, Self-Care Date of Admission: 05/30/25 18:52 Attending Provider on Discharge: Marcela Brownlee Primary Care Provider: Johanna Velasco Condition: Improved Anticipated Discharge Date/Time: 06/02/25 14:00 Discharge Medications: New potassium chloride 10 mEq Capsule, Extended Release 20 meq PO DAILY Qty: 60 0RF Continued acetaminophen 325 mg Tablet 650 mg PO Q6H PRN (Reason: As needed for fever, headache, or minor pain) Qty: 100 0RF propranolol 60 mg Capsule,Extended Release 24 Hr 60 mg PO DAILY Qty: 30 0RF melatonin 3 mg Tablet 3 mg PO HS PRN (Reason: Insomnia) Qty: 30 0RF metoclopramide HCl 10 mg Tablet 10 mg PO TID@0730,1130,1730 PRN (Reason: Nausea) Qty: 90 0RF sennosides [Senna Lax] 8.6 mg Tablet 17.2 mg PO DAILY PRN (Reason: constipation) Discontinued potassium chloride 10 mEq tablet extended release 10 meq PO DAILY Qty: 30 2RF lisinopril 10 mg tablet 10 mg PO DAILY Discharge Orders: Discharge Order (Routine); Ordered 06/02/25 Ordered By: Marcela Brownlee Patient Education: Potassium Chloride (By mouth), Hypokalemia (DC), Hypercalcemia (ED) Additional Instructions: You look great today! Your calcium normalized in the hospital with IV fluids and oral Furosemide (also called LASIX). Lasix is a medication you can take as needed in the future as an outpatient; I am not sending you home on it because her numbers look great and it can also cause low potassium. You should have your Calcium, Kidney function, and Potassium drawn with Dr. Velasco next week to make sure things remain stable. It is a good idea to have someone checking in on your regularly given your risk factor for confusion with elevated calcium. We have sent an order to home care to restart as well. Medication changes: - we have STOPPED your Lisinopril (your kidney function was lower than baseline and blood pressure overall looked okay for your age) - we have INCREASED your potassium from 10 mEq per day to 20 mEq per day (new Rx at [facility] if you need it) I am hoping that your pathology results will be back when you see Dr. Velasco next week; they were not back yet upon discharge. Follow-up plans for Oncology and further treatment discussions to be held once we have formal pathology results. Activity Level: Activity as Tolerated and No strenuous activity Discharge Diet: Regular Follow Up Appointments: Idalia Blair DO [Referring, Family Practice] - 06/06/25 1:50 pm Referral Note: [facility] for follow up appointment and BMP check. PCP was unavailable during desired time frame Johanna Velasco MD [Primary Care Provider, [facility]] Referral Note: Forms: Patient Belongings, MyHealth Info Instructions Discharge Comments: Restart [facility] per previous orders. RUEL
[2025-06-02] MEDS: POTASSIUM CHLORIDE 10 MEQ/100 ML PIGGYBACK 100 MEQ IVPB ×2 (11:51→13:07)
[2025-06-02] MEDS: 0.9 % SODIUM CHLORIDE 250 ml 250 ML 100 ML IV (11:53)
--- NOTE | 2025-06-02 14:35 | PC.NURSE ---
D/C Note Pt pleasant and cooperative with cares, standy by assist with walker, Written and verbal education given to Pt and son. No questions or concerns at time of discharge. IV removed, cath intact. Pt left facility via wheelchair accompanied by MILADY and RN. Pt transported home by Son at 14:30.
--- NOTE | 2025-06-04 12:50 | PC.SOCIAL ---
Discharge planning: bull gang worker spoke to the intake team at [facility] out of the [place] office #[phone], and they confirmed they have everything they need to resume home care services for the pt this Wednesday. Social work to follow-up if needed.
== END 2025-06-02 14:30 | disposition home health service (06) | DRG 840 ==
LOC: ED 18:07 → MEDSURG 18:53
PROVIDERS: Family Medicine; Admitting Provider Physician Assistant; Emergency Provider Family Medicine; PCP Family Medicine; Visit Provider Family Medicine
DX: C85.83 Other specified types of non-Hodgkin lymphoma, intra-abdominal lymph nodes (principal); E43 Unspecified severe protein-calorie malnutrition; Z68.1 Body mass index [BMI] 19.9 or less, adult; E83.52 Hypercalcemia; E87.6 Hypokalemia; G31.84 Mild cognitive impairment of uncertain or unknown etiology; N28.9 Disorder of kidney and ureter, unspecified; M54.50 Low back pain, unspecified; I10 Essential (primary) hypertension; E78.5 Hyperlipidemia, unspecified; I25.2 Old myocardial infarction
CPT/HCPCS: 36415; 80048; 80053; 82248; 82306; 82310; 82330; 83605; 83735; 84100; 84132; 85025; 85027; 86140; 93005; 97116; 97161; 97165; 97530; 97535; 99284; 99285; A9270; J0630; J1650; J1938; J2405; J3480; J7030; J7050